=== PATIENT | male | born 1965 | race Caucasian/White ===

== ENCOUNTER 2017-01-14 10:15 | Emergency (ER) | payer OTHER ==
[~2017-01-14] VITALS: Ht 170.2 cm; Wt 82.2 kg
[2017-01-14 10:21] VITALS: TEMP 36.7; Ht 170.2 cm; Wt 82.2 kg
[2017-01-14] MEDS ORDERED: XYLOCAINE 1%/SOD BICARB 20 ML VIAL INFIL ONE (11:05)
[2017-01-14] MEDS ORDERED: DIPHTHERIA/TETANUS/PERTUSSIS 0.5 ML SYR/VIAL IM. ONE (11:30)
[2017-01-14 11:41] VITALS: BP 177/111; PULSE 74; O2SAT 97
--- NOTE | 2017-01-16 22:03 | EMERGENCY ROOM VISIT NOTE ---
ED Visit Note First contact with patient: 10:34 Chief Complaint: I cut my left ring finger. History of Present Illness: Mr. Macdonald is a 51-year-old white male who ambulates into the ED accompanied by female friend complaining of an anterior left ring finger laceration. Patient reports approximately 2 hours ago he was using a utility-like knife at work and cut the left ring finger. Prior to comment to the emergency department he did control bleeding but did not wash his wound. Currently associated with his laceration he reports a stinging sensation in the left ring finger. He rates his discomfort 5/10. The pain is nonradiating. Pain worsens with palpation. He has not identified any alleviating factors related to the pain. He has not taken any medications for his pain prior to arrival at the hospital. Associated with his pain he does report a numbing sensation through the distal phalanx the finger. Review of Systems: As noted above in history of present illness. Past Medical History: Patient denies. Current Medications: Patient denies. Allergies to Medications: Patient denies. Social History: Patient is currently employed; he feels safe in his home environment; he admits to tobacco and alcohol use. Tetanus Immunization Status: Patient reports elevate. Physical Examination: Vital Signs: Date Time Temp Pulse Resp B/P Pulse Ox O2 Delivery O2 Flow Rate FiO2 01/14/17 11:41 74 18 177/111 97 01/14/17 10:21 36.7 74 18 177/111 97 Room Air GENERAL: 51-year-old male in mild distress due to pain, nontoxic-appearing, afebrile and hemodynamically stable. NEUROLOGICAL: Awake, alert and oriented to person, place and time. Answering questions appropriately and following commands. SKIN: Warm, dry and pink. Left Ring Finger: Patient has a 2.8 cm full- thickness laceration extending just proximal to the DIP joint and extending distally to the middle distal phalanx. No active bleeding. LEFT RING FINGER: Soft tissue injury as noted above. No gross bony deformity. Full range of motion muscle strength in flexion and extension of the DIP, PIP and MTP joint against resistance. Throughout the finger the skin was warm and pink and capillary refill is brisk. He was able to distinguish light sensations through all dermatomes ED Course: Patient is assessed as noted above. Wound Repair: Complexity: Basic Verbal consent was obtained after the risks and benefits were explained. The skin was prepped with betadine and a sterile field set. Wound edges of the wound was anesthetized with 1.4 ml buffered 1% lidocaine. The wound was explored for foreign bodies and none found. Copious irrigation was performed using sterile saline. With direct pressure the bleeding subsided. Debridement was not performed. The wound edges were approximated using 5-0 Ethilon 6 with simple interrupted sutures. Hemostasis and excellent approximation was achieved. Antibacterial ointment, a sterile dressing applied and patient was placed in a finger splint since the laceration crossed joint line. No complications and the patient tolerated the procedure well. Patient was educated about tonight's findings and instructed on his treatment plan; he verbalizes understanding and agreement with this plan. Clinical Impression: Left ring finger laceration. Work related injury. Disposition: Patient discharged home in stable condition; prior to departure he was reassessed and subjectively reported he was pain-free. Plan: Comfort measures, wound care, and signs of infection were discussed with the patient. Patient was encouraged to follow-up with Workman's Compensation or return emergency department for signs of infection and/or suture removal in 10-12 days.
== END 2017-01-14 11:43 | disposition home or self-care (01) ==
LOC: C.EDB 10:16 → C.EDD 11:43
DX: S61.215A Laceration without foreign body of left ring finger without damage to nail, initial encounter (principal); W26.0XXA Contact with knife, initial encounter; Y99.0 Civilian activity done for income or pay; F17.200 Nicotine dependence, unspecified, uncomplicated; Z23 Encounter for immunization

== ENCOUNTER 2017-01-23 08:26 | Emergency (ER) | payer OTHER ==
[~2017-01-23] VITALS: Ht 170.2 cm; Wt 82.5 kg
[2017-01-23 08:31] VITALS: BP 158/95; PULSE 77; TEMP 36.6; O2SAT 97; Ht 170.2 cm; Wt 82.5 kg
--- NOTE | 2017-01-23 08:45 | EMERGENCY ROOM VISIT NOTE ---
ED Visit Note First contact with patient: 08:35 CHIEF COMPLAINT: Suture removal This patient returns to the ED today for removal of sutures that were placed 10 days ago. There has been no swelling, redness, or drainage from the wound. The patient feels like the laceration is healing well. REVIEW OF SYSTEMS: Head: No headache, injury or neck pain. Skin: No rash, new lesions, or masses. General: No fever or chills, fatigue, loss of appetite , or significant recent weight gain or loss. PMH: The patient is healthy; there is no significant medical or surgical history. SOCIAL HISTORY: Patient lives at home. PHYSICAL EXAM: Vital Signs: Reviewed Nurse's notes. There is a sutured wound on the LEFT 4th digit with no signs of infection. There is no erythema, swelling, or tenderness. EMERGENCY DEPARTMENT COURSE: The sutures were removed in alternating fashion. There was some mild wound dehiscence. I educated the patient on continued wound care. He will return in 5 days for removal of remaining sutures. He was educated on worrisome symptoms for return visit to the emergency department. Patient discharged home in good condition. DIAGNOSIS: Healing laceration and suture removal with wound dehiscence DISCHARGE INSTRUCTIONS AND TREATMENT: Please return in 5 days for removal of remaining sutures. Proper wound care is essential for adequate wound healing and infection prevention. You can shower and clean the wound with soap and water. Do not scour over the wound, pat dry with a towel. Do not submerse the wound (i.e. bathe or dish wash) until the sutures have been removed. If crust develops over the wound you can use a Q-tip to apply a 1:1 peroxide:water solution to clean the wound. Look for signs of infection of the wound including: increased pain, swelling, foul discharge, streaking, or increased temperature. If any of these are noticed you should return to the Emergency Department for further assessment and treatment. As with any laceration you may have received nerve damage to the surrounding tissues. This damage may or may not be permanent. You should keep the area covered with sunscreen for the first 6 months to 1 year when at risk for exposure to help minimize scarring. You can also use scar reducing creams or Vitamin E oil to help minimize scarring. For pain control, you can use the following [id number]-[id number] medicines (if >12 yo): - Regular strength (325mg/tab) Tylenol (acetaminophen) 2 tabs every 4-6 hours as needed. Do not exceed 12 tablets in a 24 hour period. Avoid taking more than 4 grams (4000 mg) of Tylenol per day. This includes any other sources of acetaminophen you may take on a regular basis. - Regular strength (200 mg/tab) Advil (ibuprofen) 1-2 tabs every 4-6 hours as needed. Do not exceed a dose of 3200 mg per day. Return to the emergency department if your symptoms worsen despite treatment course outlined above. Current/Historical Medications No Active Prescriptions or Reported Meds Allergies Coded Allergies: No Known Allergies (Unverified , 01/23/17) Vital Signs Date Time Temp Pulse Resp B/P Pulse Ox O2 Delivery O2 Flow Rate FiO2 01/23/17 08:31 36.6 77 16 158/95 97 Room Air Departure Information Impression Primary Impression: Encounter for removal of sutures Additional Impression: Wound dehiscence Dispostion Home / Self-Care Condition GOOD Prescriptions No Active Prescriptions or Reported Meds Referrals No Doctor, Assigned (PCP) Patient Instructions On License Of [facility] Additional Instructions Please return in 5 days for removal of remaining sutures. Proper wound care is essential for adequate wound healing and infection prevention. You can shower and clean the wound with soap and water. Do not scour over the wound, pat dry with a towel. Do not submerse the wound (i.e. bathe or dish wash) until the sutures have been removed. If crust develops over the wound you can use a Q-tip to apply a 1:1 peroxide:water solution to clean the wound. Look for signs of infection of the wound including: increased pain, swelling, foul discharge, streaking, or increased temperature. If any of these are noticed you should return to the Emergency Department for further assessment and treatment. As with any laceration you may have received nerve damage to the surrounding tissues. This damage may or may not be permanent. You should keep the area covered with sunscreen for the first 6 months to 1 year when at risk for exposure to help minimize scarring. You can also use scar reducing creams or Vitamin E oil to help minimize scarring. For pain control, you can use the following iojv-fen-rgbjdze medicines (if >12 yo): - Regular strength (325mg/tab) Tylenol (acetaminophen) 2 tabs every 4-6 hours as needed. Do not exceed 12 tablets in a 24 hour period. Avoid taking more than 4 grams (4000 mg) of Tylenol per day. This includes any other sources of acetaminophen you may take on a regular basis. - Regular strength (200 mg/tab) Advil (ibuprofen) 1-2 tabs every 4-6 hours as needed. Do not exceed a dose of 3200 mg per day. Return to the emergency department if your symptoms worsen despite treatment course outlined above. Problem Qualifiers
== END 2017-01-23 08:49 | disposition home or self-care (01) ==
LOC: C.EDB 08:28 → C.EDA 08:49
DX: S61.215A Laceration without foreign body of left ring finger without damage to nail, initial encounter (principal); W26.0XXA Contact with knife, initial encounter

== ENCOUNTER 2017-01-28 09:49 | Emergency (ER) | payer OTHER ==
[~2017-01-28] VITALS: Ht 170.2 cm; Wt 82.9 kg
[2017-01-28 09:57] VITALS: BP 160/100; PULSE 75; TEMP 36.7; O2SAT 97; Ht 170.2 cm; Wt 82.9 kg
--- NOTE | 2017-01-28 10:29 | EMERGENCY ROOM VISIT NOTE ---
History First contact with patient: 10:00 Chief Complaint: SUTURE/STAPLE REMOVAL Stated Complaint: REMOVAL OF STITCHES Nursing Triage Summary: Sutures to left ring finger placed 15 days ago Had 2 removed but "they told me to leave the rest in until today" History of Present Illness The patient is a 51 year old male who presents to the Emergency Room for suture removal from a left fourth finger laceration that was repaired in our facility 15 days ago. The patient was here days ago with only partial suture removal as the wound looked too soft. The patient denies any further wound complications. He does complain of some mild numbness of the digital pad of the finger. Review of Systems Noncontributory Past Medical/Surgical History Well-documented on initial visit Family History Unremarkable Social History Smoking Status: Never Smoker Alcohol Use: occasionally Marital Status: Occupation Status: employed Current/Historical Medications No Active Prescriptions or Reported Meds Allergies Coded Allergies: No Known Allergies (Unverified , 01/23/17) Physical Exam Vital Signs Date Time Temp Pulse Resp B/P Pulse Ox O2 Delivery O2 Flow Rate FiO2 01/28/17 09:57 36.7 75 18 160/100 97 Room Air Pain Rating (0-10): 0 Physical Exam MUSCULOSKELETAL: Examination of the left ring finger shows a well-healed laceration on the volar aspect of the middle phalanx. No erythema, edema, drainage or diastases. All sutures were removed without any complications. INTEGUMENTARY: No rash or other significant dermatologic conditions noted. NEUROLOGIC: Left fourth finger digital pad is grossly sensory intact. Medical Decision & Procedures ED Course The patient was instructed to follow-up with his PCP as needed for any further wound management. He was advised that the numbness/tingling will take some time to resolve. Medical Decision Impression Primary Impression: Encounter for removal of sutures Additional Impression: Laceration of left ring finger Departure Information Prescriptions No Active Prescriptions or Reported Meds Referrals No Doctor, Assigned (PCP) Patient Instructions My [facility] Problem Qualifiers
== END 2017-01-28 10:15 | disposition home or self-care (01) ==
LOC: C.EDB 09:51
DX: S61.215A Laceration without foreign body of left ring finger without damage to nail, initial encounter (principal); W26.0XXA Contact with knife, initial encounter

== ENCOUNTER 2019-01-29 22:14 | Inpatient (IN) ==
[2019-01-29] MEDS ORDERED: ONDANSETRON INJ 2 MG/ML 2 ML VIAL IV STA (22:19)
[2019-01-29] MEDS ORDERED: TICAGRELOR 90 MG TAB PO ONE ×2 (22:19→22:21)
[2019-01-29] MEDS ORDERED: HEPARIN IV BOLUS 5,000 UNITS in SYRINGE 0 ML IV ONE (22:19)
[2019-01-29] MEDS ORDERED: fentaNYL citrate 100 MCG/2 ML VIAL IV STA (22:19)
[2019-01-29] MEDS ORDERED: HEPARIN SOD 5,000 UNIT/0.5 ML VIAL ONE (22:21)
[2019-01-29] MEDS ORDERED: ONDANSETRON INJ 2 MG/ML 2 ML VIAL ONE (22:22)
[2019-01-29] MEDS ORDERED: fentaNYL citrate 100 MCG/2 ML VIAL ONE (22:23)
--- NOTE | 2019-01-29 22:34 | Cardiology Consultation ---
Date of Consultation January 29, 2019 Assessment & Plan (1) ST elevation myocardial infarction (STEMI) of anterior wall: Patient here with acute onset chest pain EKG showing anterior ST elevations. Plan to proceed emergently to cardiac catheterization lab. Discussed procedure with patient including risks, benefits, alternatives of cardiac catheterization and willing to proceed. We will give 5000 units of heparin, under 80 mg of ticagrelor in the ED. Further recommend patient's pending findings of angiography. History of Present Illness History of Present Illness Mr. Macdonald is a 53-year-old man with no prior cardiac history presenting today with acute chest pain. Interventional cardiology consult for apparent anterior ST elevation VT. Patient was in his usual state of health tonight when all of a sudden while getting out of the shower developed crushing substernal chest pain. Pain associated with vomiting, diaphoresis and persisted for approximately an hour before reaching [facility] ED. Upon arrival hypertensive to the 170s, active chest pain 7/10. Given sublingual nitroglycerin in route, aspirin. Presenting EKG showed sinus rhythm with greater than [address] elevations across precordial leads. Family history: Father with premature coronary disease in early 60s and multiple prior stents Social history: Uses smokeless tobacco. Works in maintenance for an apartment building Medications: None Allergies: none Allergies Allergy/AdvReac Type Severity Reaction Status Date / Time No Known Allergies Allergy Unverified 01/23/17 08:37 Patient History Social History Feels Safe at Home: Yes Smoking Status: Never smoker Review of Systems Not obtained in the setting of emergent situation Physical Exam Vital Signs (Past 24 Hours): Last Vital Signs Temp 36.9 C 01/29/19 22:20 Pulse 93 H 01/29/19 22:20 Resp 16 01/29/19 22:20 BP 170/114 H 01/29/19 22:20 Pulse Ox 98 01/29/19 22:20 Physical Exam: General: Uncomfortable, anxious Eyes: Sclerae anicteric, extraocular movements intact HENT: Oropharynx clear mucous membranes moist Lungs: Clear to auscultation bilaterally, no rhonchi or wheezes Cardiac: Regular rate and rhythm, no murmurs, rubs or gallops. Vascular: 2+ radial Abdomen: Soft, nontender, nondistended, positive bowel sounds. Extremities: Well perfused, no peripheral edema Skin: No rashes or lesions. Neuro: Nonfocal Psych: Alert orient x3, normal affect and mood
--- NOTE | 2019-01-29 22:42 | XRay Report ---
SINGLE VIEW CHEST CLINICAL HISTORY: Atypical chest pain. FINDINGS: An AP, portable, upright chest radiograph is obtained. No prior studies are available for c omparison at the time of dictation. The examination is degraded by portable technique and patient rot ation. The cardiomediastinal silhouette is unremarkable. Nonspecific interstitial thickening is like ly chronic. No airspace consolidation or large pleural effusion is identified. No pneumothorax is see n. The skeletal structures are osteopenic. The bony thorax is grossly intact. IMPRESSION: No acute cardiopulmonary abnormality. Electronically signed by: Zeke Bello M.D. 01/29/2019 10:41 PM
[2019-01-29 22:50] LABS: Basophils # (auto) 0.02 K/uL (0-0.2); Basophils % (auto) 0.2 %; Eosinophils # (auto) 0.25 K/uL (0-0.5); Eosinophils % (auto) 2.6 %; Hematocrit (blood only) 48.6 % (42-52); Hemoglobin 17.4 g/dL (14.0-18.0); Immature Granulocytes # (auto) 0.02 K/uL (0.00-0.02); Immature Granulocytes % (auto) 0.2 %; Lymphocytes # (auto) 3.55 K/uL (1.2-3.4); Lymphocytes % (auto) 36.5 %; Mean Corpuscular Hgb Conc 35.8 g/dL (32-36); Mean Corpuscular Volume 88.5 fL (80-100); Monocytes # (auto) 0.74 K/uL (0.11-0.59); Monocytes % (auto) 7.6 %; Neutrophils # (auto) 5.14 K/uL (1.4-6.5); Neutrophils % (auto) 52.9 %; Platelet Count 230 K/uL (130-400); RDW Coefficient of Variation 12.8 % (11.5-14.5); RDW Standard Deviation 41.3 fL (36.4-46.3); Red Blood Count 5.49 M/uL (4.7-6.1); White Blood Count 9.72 K/uL (4.8-10.8)
[2019-01-29 22:56] LABS: Albumin Level 3.9 gm/dl (3.4-5.0); BUN Creatinine Ratio 11.8 (10-20); Calcium 9.2 mg/dl (8.5-10.1); Est GFR (Non-African American) 78.5; Potassium 3.8 mmol/L (3.5-5.1)
[2019-01-29] MEDS ORDERED: METOPROLOL TARTRATE 1 MG/ML VIAL IV ONE (22:59)
[2019-01-29 23:01] LABS: Albumin Globulin Ratio 0.9 (0.9-2); Bilirubin,Total 0.5 mg/dl (0.2-1); Globulin 4.3 gm/dl (2.5-4.0); Total Protein 8.2 gm/dl (6.4-8.2); Troponin I 0.025 ng/ml (0-0.045)
[2019-01-29] MEDS ORDERED: MIDAZOLAM HCL 1 MG/ML 2ML VIAL ONE (23:22)
[2019-01-29] MEDS ORDERED: HEPARIN (PORCINE) 1000 UNIT/ML 10 ML (CATH LAB USE ONLY) ONE (23:23)
[2019-01-29] MEDS ORDERED: NITROGLYCERIN/D5W 100MCG/ML 20ML SYR ONE (23:23)
[2019-01-29] MEDS ORDERED: NiCARDipine HCL INJ 2.5 MG/ML 10 ML AMP ONE (23:23)
--- NOTE | 2019-01-29 23:39 | Pre Anesthesia Assessment ---
Date of Service January 29, 2019 Pre Sedation Assessment Vital Signs Temp Pulse Resp BP Pulse Ox 01/29/19 23:31 65 162/113 H 01/29/19 22:35 65 18 162/113 H 98 01/29/19 22:20 36.9 C 93 H 16 170/114 H 99 01/29/19 22:15 66 96 Cardiovascular RRR, no murmur, no edema Respiratory normal respiratory effort, lungs clear to auscultation Pre-Sedation Airway Assessment Smoking Status: Never smoker Hx Sleep Apnea: No Hx Difficult Intubation: No Short, Thick Neck: No Thyromental Distance: > or= 3.5 Finger Breadths Oral Cavity: + WNL Mallampati Class: III Procedure Planning Contraindications for Sedation: none Current Medications Reviewed: Yes Notes The planned sedation has been discussed with the patient. Informed Consent was obtained. I have identified the patient, determined the appropriateness of sedation and have assessed the patient immediately prior to the procedure. All medicine(s) and interventions are by my order.
--- NOTE | 2019-01-29 23:40 | Post Anesthesia Assessment ---
Date of Service January 29, 2019 Post Sedation Assessment Vital Signs Temp Pulse Resp BP Pulse Ox 01/29/19 23:31 65 162/113 H 01/29/19 22:35 65 18 162/113 H 98 01/29/19 22:20 36.9 C 93 H 16 170/114 H 99 01/29/19 22:15 66 96 Recovery Score Activity: Moves 4 extremities Respiration: Deep Breath/Cough Circulation: +/-20% PreAnes Value Consciousness: Fully Awake Oxygen Saturation: O2 needed for >90% Discharge Sedation Level of Care: Fast Track Phase II Post Sedation Plan On clinical assessment, the patient appears to have tolerated the sedation without complications. Patient is recovering as anticipated. Patient will continue to be monitored by nursing and may be discharged when sedation discharge criteria are met per below protocol. Upon Completions of procedure and additional 15 minutes continue every 5 minute vital signs and the P.A.R. score; then discharge to a Phase I or Fast Track to Phase II per the following guidelines: * Discharge Patient to appropriate Phase II area if PAR is 8 or greater or return to pre- procedure baseline. The post - procedure orders will be as directed. * If PAR score is less than 8 or not return to pre-procedure baseline then patient will follow Phase I monitoring till PAR is reached for Phase II. The Phase I may be done in procedure room or may call to secure a Phase I area. * If naloxone or flumazenil are used for reversal, hold in Phase I for continued monitoring from when last reversal dose was given for a minimum of 60 minutes or longer pending the nurse and/or physician discretion of patient condition before discharge to Phase II. Please call the Sedation Physician to re-evaluate and complete post-note for discharge to Phase II area. Do NOT discharge from procedure sedation or Phase 1 until post- sedation evaluation note is complete by procedure /sedation MD Sedation Discharge Instructions to be given to the patient at discharge to home.
[2019-01-29] MEDS ORDERED: ACETAMINOPHEN 325 MG TAB PO PRN (23:41)
[2019-01-29] MEDS ORDERED: ONDANSETRON INJ 2 MG/ML 2 ML VIAL IV PRN (23:41)
[2019-01-29] MEDS ORDERED: ICU PROTOCOL FOR HYPERGLYCEMIA PRN (23:45)
[2019-01-29] MEDS: SODIUM CHLORIDE 0.9% 1000ML 1,000 ML IV SCH (23:50)
--- NOTE | 2019-01-29 23:50 | Cardiac Catheterization ---
Cardiac Cath Procedure Full Procedure Date January 29, 2019 Pre-Procedure Diagnosis Pre-Procedure Diagnosis: STEMI AUC Score AUC Score: 9 Post-Procedure Diagnosis Post-Procedure Diagnosis: Severe CAD, Successful PCI and Normal Intracardiac Pressures Procedure(s) Performed Procedure(s) Performed: Coronary Angiography, Left Heart Cath and Drug Eluting Stent Graphic Engineer Dami Hall MD Quality Review Specialist(s) Kerry Estimated Blood Loss Estimated Blood Loss: 15 Medication(s) Medication(s): Fentanyl, Heparin, Lidocaine 1%, Metoprolol, Nicardipine, Nitroglycerin and Versed Medication(s): Ticagrelor Summary of Findings Indication: STEMI/Heart Alert Access: 6 Fr right radial artery Catheters: EBU 3.5 guide, diagnostic JR4, pigtail Findings: LM -angiographically normal LAD -moderate caliber vessel, proximal luminal irregularities, 100% acute mid occlusion after takeoff of moderate caliber second diagonal Circumflex -moderate caliber vessel, 20% mid segment disease. 30-40% ostial OM 2. 20-30% proximal OM 3 RCA -dominant, large caliber, 20% mid segment disease, distal luminal irregularities LVEDP -12 -- PCI -- Antithrombotic therapy: Heparin, ticagrelor Procedure: Left main cannulated with EBU 3.5 guide BMW wire passed across lesion into distal vessel Mid LAD lesion predilated with 2.5 compliant balloon Pro-water wire placed into second diagonal Dilated lesion stented with 2.75 x 33 mm Xience Justina drug-eluting stent Stent post-dilated with 3.0 noncompliant balloon IC vasodilators administered for spasm Post procedure WOLF 3 flow, stent well expanded with minimal residual stenosis and no apparent cardiac complications. Arterial Closure: TR band Summary: 1. Anterior STEMI/Occluded mid LAD 2. Mild nonobstructive non-culprit coronary artery disease 3. Normal intracardiac filling pressure 4. Successful PCI of mid LAD with single drug-eluting stent (2.75 x 33 mm Xience Justina; postdilated with 3.0 NC). Recommendations: Admit to ICU for continued monitoring Loaded with ticagrelor 180 mg Continue dual-antiplatelet therapy for at least 1 year. Trend troponins until peak, Check Echo Uptitrate beta-celia/MAGUE as BP allows High-dose statin Consult cardiac Rehab Hemodynamics Rest Ao:: 167/89/126 Final Ao: 144/82/108 LV: 134/12 Recommendations Recommendations: PCI without planned CABG Specimens Specimens: None Radiation Exposure (mGy) 2082 Contrast (mls) 95 Fluids (cc crystalloids) Fluids (cc crystalloids): 68 Drains Drains: None Anesthesia Moderate Procedural Complication(s) None Disposition ICU ACC Data: [employer] Cardiac Status Clinical evaluation leading to the procedure CAD Presenation: STEMI Anginal Classification: CCS IV Heart Failure: No Cardiogenic Shock within 24 Hours: No Cardiac Arrest within 24 Hours: No Imaging Studies Past 6 Months: No Stress Studies Past 6 Months: No Diagnostic Physicians Name: Dami Hall MD Status: Emergency Closure Device Percutaneous Entry Location: Radial Closure Device: Radial Band Recommendations: PCI without planned CABG PCI Indication: Immediate PCI for STEMI First Noted: First EKG Lesion Segment Name: Mid LAD Culprit Artery: Yes Stenosis Prior to Rx (%): 100 Chronic Total Occlusion: No IVUS: No FFR: No Pre-Procedure WOLF Flow: 0 Previously Treated Lesion: No Lesion Complexity: Non-High/Non-C Lesion Length (mm): 25 Thrombus Present: Yes Bifurcation Lesion: No Guidewire Across Lesion: Stenosis Post-Procedure (%): 0 Post-Procedure WOLF Flow: 3 Devices(s) Deployed: Yes Yes Intraprocedure Events Significant Disection: No Perforation: No
--- NOTE | 2019-01-30 00:21 | History & Physical Report ---
Date of Service January 30, 2019 Assessment & Plan (1) ST elevation myocardial infarction (STEMI) of anterior wall: Patient with anterior STEMI s/p cardiac catheterization revealing 100% occlusion of LAD s/p KIERRA x 1. Presently HD stable, CP free, no complaints -Admit to MICU -Trend cardiac enzymes -Neurovascular checks per protocol -2D echo in the AM -Continue ASA, Atorvastatin, Lisinopril, Metoprolol -Continue Ticragrelor -Nitro PRN CP (2) Hyperglycemia: Blood sugar elevated at 211. Patient with no known history of DM, however, he has not had routine medical care for some time -Check HgA1C -ICU insulin protocol F/E/N- NSS at 100mL/hr, monitor electrolytes and optimize as needed, heart healthy diet as tolerated Ppx - ASA, Ticagrelor. Activity as tolerated Code -Full Dispo - MICU History of Present Illness Chief Complaint: Anterior STEMI Primary Care Provider: NO PCP Mr. Macdonald is a 53yo C male with no significant past medical history presenting with nausea/vomiting and chest pain. EKG with anterior STEMI. Patient arrived to [facility] ER as a Code Heart and was taken urgently to the manager lab with Dr. Hall. Cardiac cath result: LM -angiographically normal LAD -moderate caliber vessel, proximal luminal irregularities, 100% acute mid occlusion after takeoff of moderate caliber second diagonal Circumflex -moderate caliber vessel, 20% mid segment disease. 30-40% ostial OM 2. 20-30% proximal OM 3 RCA -dominant, large caliber, 20% mid segment disease, distal luminal irregula rities LVEDP -12 Patient had successful PCI of mid LAD with single drug-eluting stent (2.75 x 33 mm Xience Justina; postdilated with 3.0 NC). Presently feeling well. Denies CP, palpitations, dizziness, lightheadedness. No additional complaints at this time. Allergies Allergy/AdvReac Type Severity Reaction Status Date / Time No Known Allergies Allergy Unverified 01/23/17 08:37 Past Med/Surg History Medical History CAD (coronary artery disease) Anterior STEMI 01/29/19 s/p cath with KIERRA to LAD Surgical History S/P cardiac cath Family History Other Coronary heart disease Diabetes Hypertension Social History Preferred Language: Greenlandic Communication Ability: Effective Quality Engineer Required: No Beliefs That Will Affect Care: None Current Living Situation: Alone Other Information That Helps Us Care for You: No Feels Safe at Home: Yes Safety Concerns: Feels Safe At This Time Smoking Status: Never smoker Hx Alcohol Use: Yes Hx Substance Use: No Review of Systems All systems reviewed & are unremarkable except as noted in HPI & below Physical Exam Vital Signs (Past 24 Hours): Last Vital Signs Temp 36.7 C 01/29/19 23:44 Pulse 72 01/29/19 23:44 Resp 18 01/29/19 23:44 BP 132/81 01/29/19 23:44 Pulse Ox 97 01/29/19 23:44 Physical Exam: General: patient resting comfortably, NAD, non-toxic in appearance, AA&O x 4 Skin: warm, dry, intact, no rashes or lesions HEENT: NC/AT, PERRL, EOMI, anicteric sclera, conjunctiva without injection, external ear normal to inspection and nontender, nares patent, moist mucus membranes, dentition intact, no oropharyngeal lesions, neck supple, trachea midline, no LAD, no thyromegaly, no JVD Heart: +S1/S2, regular, no m/r/g Lungs: equal air entry bilaterally, no rales/rhonchi/wheezes Abd: +BS, soft, NT/ND, no masses/organomegaly/ascites Ext: warm, 2+ pulses in UE/LE bilaterally, no clubbing/cyanosis or edema, hemostasis band on right wrist, no bleeding Neuro: nonfocal, patient AA&O x 4, speech intact, no facial droop, moving all extremities on command with equal strength 5/5 Results & Data Laboratory Results Lab Results 01/29/19 01/29/19 01/29/19 Range/Units 21:49 22:50 Unknown WBC 9.72 (4.8-10.8) K/uL RBC 5.49 (4.7-6.1) M/uL Hgb 17.4 (14.0-18.0) g/dL Hct 48.6 (42-52) % MCV 88.5 (80-100) fL MCH 31.7 (25-34) pg MCHC 35.8 (32-36) g/dL RDW Std Deviation 41.3 (36.4-46.3) fL RDW Coeff of Hazel 12.8 (11.5-14.5) % Plt Count 230 (130-400) K/uL MPV 11.0 H (7.4-10.4) fL Immature Gran % (Auto) 0.2 % Neut % (Auto) 52.9 % Lymph % (Auto) 36.5 % [place] % (Auto) 7.6 % Eos % (Auto) 2.6 % Baso % (Auto) 0.2 % Immature Gran # (Auto) 0.02 (0.00-0.02) K/uL Neut # (Auto) 5.14 (1.4-6.5) K/uL Lymph # (Auto) 3.55 H (1.2-3.4) K/uL [place] # (Auto) 0.74 H (0.11-0.59) K/uL Eos # (Auto) 0.25 (0-0.5) K/uL Baso # (Auto) 0.02 (0-0.2) K/uL Activ Coag Time Kaolin 257 H (94-140) SECONDS POC D-Dimer 432 (0-450) ng/mlFEU Sodium (136-145) mmol/L Potassium (3.5-5.1) mmol/L Chloride (98-107) mmol/L Carbon Dioxide (21-32) mmol/L Anion Gap (3-11) BUN (7-18) mg/dl Creatinine (0.6-1.4) mg/dl Est Cr Clr Drug Dosing ml/min Est GFR ( Amer) Est GFR (Non-Af Amer) BUN/Creatinine Ratio (10-20) Glucose (70-99) mg/dl Calcium (8.5-10.1) mg/dl Total Bilirubin (0.2-1) mg/dl AST (15-37) U/L ALT (12-78) U/L Alkaline Phosphatase (45-117) U/L POC Troponin I < 0.03 (0-0.045) ng/ml Troponin I (0-0.045) ng/ml Total Protein (6.4-8.2) gm/dl Albumin (3.4-5.0) gm/dl Globulin (2.5-4.0) gm/dl Albumin/Globulin Ratio (0.9-2) Lipase (73-393) U/L 01/29/19 Range/Units Unknown WBC (4.8-10.8) K/uL RBC (4.7-6.1) M/uL Hgb (14.0-18.0) g/dL Hct (42-52) % MCV (80-100) fL MCH (25-34) pg MCHC (32-36) g/dL RDW Std Deviation (36.4-46.3) fL RDW Coeff of Hazel (11.5-14.5) % Plt Count (130-400) K/uL MPV (7.4-10.4) fL Immature Gran % (Auto) % Neut % (Auto) % Lymph % (Auto) % [place] % (Auto) % Eos % (Auto) % Baso % (Auto) % Immature Gran # (Auto) (0.00-0.02) K/uL Neut # (Auto) (1.4-6.5) K/uL Lymph # (Auto) (1.2-3.4) K/uL [place] # (Auto) (0.11-0.59) K/uL Eos # (Auto) (0-0.5) K/uL Baso # (Auto) (0-0.2) K/uL Activ Coag Time Kaolin (94-140) SECONDS POC D-Dimer (0-450) ng/mlFEU Sodium 140 (136-145) mmol/L Potassium 3.8 (3.5-5.1) mmol/L Chloride 103 (98-107) mmol/L Carbon Dioxide 32 (21-32) mmol/L Anion Gap 5.0 (3-11) BUN 13 (7-18) mg/dl Creatinine 1.08 (0.6-1.4) mg/dl Est Cr Clr Drug Dosing 82.0 ml/min Est GFR ( Amer) 91.0 Est GFR (Non-Af Amer) 78.5 BUN/Creatinine Ratio 11.8 (10-20) Glucose 211 H (70-99) mg/dl Calcium 9.2 (8.5-10.1) mg/dl Total Bilirubin 0.5 (0.2-1) mg/dl AST 23 (15-37) U/L ALT 39 (12-78) U/L Alkaline Phosphatase 109 (45-117) U/L POC Troponin I (0-0.045) ng/ml Troponin I 0.025 (0-0.045) ng/ml Total Protein 8.2 (6.4-8.2) gm/dl Albumin 3.9 (3.4-5.0) gm/dl Globulin 4.3 H (2.5-4.0) gm/dl Albumin/Globulin Ratio 0.9 (0.9-2) Lipase 217 (73-393) U/L Diagnostic Findings SINGLE VIEW CHEST CLINICAL HISTORY: Atypical chest pain. FINDINGS: An AP, portable, upright chest radiograph is obtained. No prior studies are available for comparison at the time of dictation. The examination is degraded by portable technique and patient rotation. The cardiomediastinal silhouette is unremarkable. Nonspecific interstitial thickening is likely chronic. No airspace consolidation or large pleural effusion is identified. No pneumothorax is seen. The skeletal structures are osteopenic. The bony thorax is grossly intact. IMPRESSION: No acute cardiopulmonary abnormality. Electronically signed by: Zeke Bello M.D. 01/29/2019 10:41 PM Dictated: 01/29/19 224 Transcribed: 01/29/19 224 ECG Additional Comments: Initial EKG with ST elevations in anterior leads Repeat EKG pending Code Status & VTE Plan Code Status Full per discussion with patient VTE Prophylaxis Plan VTE Prophylaxis will be ordered: Yes Critical Care Time 25 minutes Critical Care Time: Yes
--- NOTE | 2019-01-30 03:00 | Emergency Department Note ---
Entered by Reji Bergeron acting as a scribe for Krunal Barnett MD ED Provider Note CHIEF COMPLAINT: Chest pain HISTORY OF PRESENT ILLNESS: The patient is a 53 year old male that presents to the ED via ambulance with complaints of constant chest pain that started about an hour prior to arrival. He rates the pain as an 8/10 and it does not radiate anywhere. He also vomited one time. En route he received 3 Nitroglycerin and 1 Aspirin, which did not help relieve his symptoms. He has no past medical history but his father has coronary artery disease and had coronary stents placed. The patient is a nonsmoker. Prehospital ECG was concerning for acute anterolateral myocardial infarction. Command was contacted. I discussed the case with the paramedics. A heart alert was initiated. Pt denies LOC, headache, fevers, diaphoresis, visual changes, neck pain, breathing difficulties, nausea, vomiting, abdominal pain, back pain, melena, hematochezia, urinary symptoms, numbness, weakness, lymphadenopathy, rash, or other complaints. REVIEW OF SYSTEMS: See HPI for pertinent positives and negatives. A total of ten systems were reviewed and were otherwise negative. PMHx/PSHx: No past medical history SOCIAL HISTORY: Patient lives at home. PHYSICAL EXAM: GENERAL: Awake, alert, uncomfortable-appearing, in moderate distress HENT: Normocephalic, atraumatic. Oropharynx unremarkable. EYES: Normal conjunctiva. Sclera non-icteric. NECK: Inspection normal. Non-tender. Supple. No nuchal rigidity. FROM. No masses. RESPIRATORY: Clear to auscultation. No wheezes. No rales. Normal respiratory effort. CARDIAC: Normal rate. Normal rhythm. No murmurs. No rubs. Extremities warm and well perfused. Pulses equal. No JVD. GI: Soft, non-distended. No tenderness to palpation. No rebound or guarding. No masses. RECTAL: Deferred. MUSCULOSKELETAL: Atraumatic. Chest examination reveals no tenderness. The back is symmetrical on inspection without obvious abnormality. There is no CVA tenderness to palpation. No joint edema. LOWER EXTREMITIES: Calves are equal size bilaterally and non-tender. No edema. No discoloration. NEURO: Normal sensorium. No sensory or motor deficits noted. SKIN: No rash or jaundice noted. EMERGENCY DEPARTMENT COURSE: 2213: Past medical records reviewed. Pre-Hospital EKGs from the times of 21:55, 22:02, and 22:05, were assessed. They all show anterior and some inferior ST elevation with PVCs present. His heart rate was 92, 96, 98, respectively. The patient was evaluated in room B01, and a complete history and physical examination were performed. 2220: Dr. Rafael Justin Cardiology recommended 5000 IV Heparin and 180mg Brilinta while his team comes in to take him to the lab aide. 2227: The patient states his pain has improved to a 5/10 after the pain medications. 2230: The patient was taken to the catheterization lab and accepted for further treatment and evaluation by Dr. Rafael Justin Cardiology. MEDICAL DECISION MAKING: Nursing notes reviewed and agree them. Additional history obtained from paramedics. The patient's history was concerning for chest pain. Differential diagnosis: Etiologies such as cardiac ischemia, aortic dissection, pulmonary embolism, esophageal rupture, pneumonia, pneumothorax, musculoskeletal, infections, gastrointestinal, as well as others were entertained. Physical examination: Patient was in acute distress. Physical exam is as above. ER treatment provided: Heparin Brilinta Zofran IVP Fentanyl On reassessment the patient felt better. Diagnostic interpretation: The electrocardiogram was significant for an acute myocardial infarction. The labs revealed normal chemistries and cardiac enzymes by i-STAT and [id number]. The following imaging studies were performed and reviewed by me: Chest x-ray as above. No evidence of widened mediastinum. The patient is having an acute myocardial infarction. The heart alert was initiated prehospital. The patient was evaluated in the ER by Dr. Hall of cardiology. He agreed with the assessment. He requested Brilinta and heparin be given. This was done. The patient's pain was treated with IV fentanyl as he had no relief with nitroglycerin. Critical Care: I have personally spent greater than 30 minutes of critical care time in the direct management of this patient. This includes bedside care, interpretation of diagnostic studies, and testing, discussion with consultants, patient, and significant other, documentation, and other required patient management activities. This 30 minutes is in excess of all separately billable procedures. IMPRESSION: Acute Myocardial Infarction PLAN: Admitted The scribe's documentation has been prepared under my direction and personally reviewed by me in its entirety. I confirm that the note above accurately reflects all work, treatment, procedures, and medical decision making performed by me. Impression & Plan Acute DC Past Med/Surg History Medical History CAD (coronary artery disease) Anterior STEMI 01/29/19 s/p cath with KIERRA to LAD Surgical History S/P cardiac cath Family History Other Coronary heart disease Diabetes Hypertension Social History Preferred Language: Pashto Communication Ability: Effective Chiller Hand Required: No Beliefs That Will Affect Care: None Current Living Situation: Alone Other Information That Helps Us Care for You: No Feels Safe at Home: Yes Safety Concerns: Feels Safe At This Time Smoking Status: Never smoker Hx Alcohol Use: Yes Hx Substance Use: No Results & Data Vital Signs Vital Signs - 24 hr 01/29/19 22:15 01/29/19 22:20 01/29/19 22:35 Temperature 36.9 C Temperature Source Oral Sepsis Recent Fever Within 48 Hours No Sepsis New/Unexplained Change in Mental Status No Sepsis Action Taken by Nursing No Action Required Pulse Rate 66 93 H 65 Pulse Rate [Left Apical] Pulse Rate from SpO2 Sensor Pulse Rhythm Regular Regular Pulse Rhythm [Left Apical] Pulse Strength Normal Pulse Strength [Left Apical] Respiratory Rate 16 18 Respiratory Effort / Characteristics Non-Labored Spontaneous Respiratory Depth Normal Respiratory Pattern Blood Pressure 170/114 H 162/113 H Blood Pressure [Left Arm] Blood Pressure Mean 132 Blood Pressure Mean [Left Arm] Blood Pressure Position Lying Blood Pressure Position [Left Arm] Pulse Oximetry 96 99 98 Oxygen Delivery Method Room Air Nasal Cannula Nasal Cannula Oxygen Flow Rate 2 2 01/29/19 23:30 01/29/19 23:31 01/29/19 23:41 Temperature 36.8 C Temperature Source Sepsis Recent Fever Within 48 Hours Sepsis New/Unexplained Change in Mental Status Sepsis Action Taken by Nursing Pulse Rate 65 73 Pulse Rate [Left Apical] 80 Pulse Rate from SpO2 Sensor Pulse Rhythm Pulse Rhythm [Left Apical] Regular Pulse Strength Pulse Strength [Left Apical] Normal Respiratory Rate 18 19 Respiratory Effort / Characteristics Non-Labored Respiratory Depth Normal Respiratory Pattern Regular Blood Pressure 162/113 H 133/87 Blood Pressure [Left Arm] 138/79 Blood Pressure Mean 102 Blood Pressure Mean [Left Arm] 98 Blood Pressure Position Blood Pressure Position [Left Arm] Lying Pulse Oximetry 96 Oxygen Delivery Method Room Air Oxygen Flow Rate 01/29/19 23:42 01/29/19 23:43 01/29/19 23:44 Temperature 36.7 C Temperature Source Oral Sepsis Recent Fever Within 48 Hours Sepsis New/Unexplained Change in Mental Status Sepsis Action Taken by Nursing Pulse Rate 75 78 Pulse Rate [Left Apical] 72 Pulse Rate from SpO2 Sensor 74 78 Pulse Rhythm Pulse Rhythm [Left Apical] Pulse Strength Pulse Strength [Left Apical] Respiratory Rate 16 20 18 Respiratory Effort / Characteristics Non-Labored Respiratory Depth Normal Respiratory Pattern Regular Blood Pressure 132/81 Blood Pressure [Left Arm] 132/81 Blood Pressure Mean 98 Blood Pressure Mean [Left Arm] 98 Blood Pressure Position Blood Pressure Position [Left Arm] Pulse Oximetry 95 97 97 Oxygen Delivery Method Room Air Oxygen Flow Rate 01/29/19 23:45 01/30/19 00:00 01/30/19 00:01 Temperature Temperature Source Sepsis Recent Fever Within 48 Hours Sepsis New/Unexplained Change in Mental Status Sepsis Action Taken by Nursing Pulse Rate 85 82 82 Pulse Rate [Left Apical] Pulse Rate from SpO2 Sensor 81 77 85 Pulse Rhythm Pulse Rhythm [Left Apical] Pulse Strength Pulse Strength [Left Apical] Respiratory Rate 23 16 23 Respiratory Effort / Characteristics Respiratory Depth Respiratory Pattern Blood Pressure 128/93 Blood Pressure [Left Arm] Blood Pressure Mean 104 Blood Pressure Mean [Left Arm] Blood Pressure Position Blood Pressure Position [Left Arm] Pulse Oximetry 96 96 97 Oxygen Delivery Method Oxygen Flow Rate 01/30/19 00:15 01/30/19 00:30 01/30/19 00:42 Temperature Temperature Source Sepsis Recent Fever Within 48 Hours Sepsis New/Unexplained Change in Mental Status Sepsis Action Taken by Nursing Pulse Rate 76 77 78 Pulse Rate [Left Apical] Pulse Rate from SpO2 Sensor 76 78 78 Pulse Rhythm Pulse Rhythm [Left Apical] Pulse Strength Pulse Strength [Left Apical] Respiratory Rate 25 H 22 15 Respiratory Effort / Characteristics Respiratory Depth Respiratory Pattern Blood Pressure 131/84 Blood Pressure [Left Arm] Blood Pressure Mean 99 Blood Pressure Mean [Left Arm] Blood Pressure Position Blood Pressure Position [Left Arm] Pulse Oximetry 97 97 97 Oxygen Delivery Method Oxygen Flow Rate 01/30/19 00:45 01/30/19 00:46 01/30/19 01:00 Temperature Temperature Source Sepsis Recent Fever Within 48 Hours Sepsis New/Unexplained Change in Mental Status Sepsis Action Taken by Nursing Pulse Rate 71 74 71 Pulse Rate [Left Apical] Pulse Rate from SpO2 Sensor 72 73 71 Pulse Rhythm Pulse Rhythm [Left Apical] Pulse Strength Pulse Strength [Left Apical] Respiratory Rate 17 23 10 L Respiratory Effort / Characteristics Respiratory Depth Respiratory Pattern Blood Pressure 121/88 136/89 Blood Pressure [Left Arm] Blood Pressure Mean 99 104 Blood Pressure Mean [Left Arm] Blood Pressure Position Blood Pressure Position [Left Arm] Pulse Oximetry 96 97 98 Oxygen Delivery Method Oxygen Flow Rate 01/30/19 01:01 01/30/19 01:15 01/30/19 01:16 Temperature Temperature Source Sepsis Recent Fever Within 48 Hours Sepsis New/Unexplained Change in Mental Status Sepsis Action Taken by Nursing Pulse Rate 67 71 72 Pulse Rate [Left Apical] Pulse Rate from SpO2 Sensor 68 70 72 Pulse Rhythm Pulse Rhythm [Left Apical] Pulse Strength Pulse Strength [Left Apical] Respiratory Rate 16 14 17 Respiratory Effort / Characteristics Respiratory Depth Respiratory Pattern Blood Pressure 127/89 Blood Pressure [Left Arm] Blood Pressure Mean 101 Blood Pressure Mean [Left Arm] Blood Pressure Position Blood Pressure Position [Left Arm] Pulse Oximetry 98 97 96 Oxygen Delivery Method Oxygen Flow Rate 01/30/19 01:30 01/30/19 01:31 01/30/19 01:45 Temperature Temperature Source Sepsis Recent Fever Within 48 Hours Sepsis New/Unexplained Change in Mental Status Sepsis Action Taken by Nursing Pulse Rate 76 77 74 Pulse Rate [Left Apical] Pulse Rate from SpO2 Sensor 75 77 75 Pulse Rhythm Pulse Rhythm [Left Apical] Pulse Strength Pulse Strength [Left Apical] Respiratory Rate 21 20 14 Respiratory Effort / Characteristics Respiratory Depth Respiratory Pattern Blood Pressure 130/98 132/90 Blood Pressure [Left Arm] Blood Pressure Mean 108 104 Blood Pressure Mean [Left Arm] Blood Pressure Position Blood Pressure Position [Left Arm] Pulse Oximetry 96 94 97 Oxygen Delivery Method Oxygen Flow Rate 01/30/19 01:46 01/30/19 02:00 01/30/19 02:01 Temperature Temperature Source Sepsis Recent Fever Within 48 Hours Sepsis New/Unexplained Change in Mental Status Sepsis Action Taken by Nursing Pulse Rate 82 71 75 Pulse Rate [Left Apical] Pulse Rate from SpO2 Sensor 75 71 75 Pulse Rhythm Pulse Rhythm [Left Apical] Pulse Strength Pulse Strength [Left Apical] Respiratory Rate 23 14 21 Respiratory Effort / Characteristics Respiratory Depth Respiratory Pattern Blood Pressure 134/91 Blood Pressure [Left Arm] Blood Pressure Mean 105 Blood Pressure Mean [Left Arm] Blood Pressure Position Blood Pressure Position [Left Arm] Pulse Oximetry 97 95 94 Oxygen Delivery Method Oxygen Flow Rate 01/30/19 02:15 01/30/19 02:16 01/30/19 02:30 Temperature Temperature Source Sepsis Recent Fever Within 48 Hours Sepsis New/Unexplained Change in Mental Status Sepsis Action Taken by Nursing Pulse Rate 82 68 85 Pulse Rate [Left Apical] Pulse Rate from SpO2 Sensor 78 69 82 Pulse Rhythm Pulse Rhythm [Left Apical] Pulse Strength Pulse Strength [Left Apical] Respiratory Rate 20 15 22 Respiratory Effort / Characteristics Respiratory Depth Respiratory Pattern Blood Pressure 136/93 Blood Pressure [Left Arm] Blood Pressure Mean 107 Blood Pressure Mean [Left Arm] Blood Pressure Position Blood Pressure Position [Left Arm] Pulse Oximetry 96 97 94 Oxygen Delivery Method Oxygen Flow Rate 01/30/19 02:31 Temperature Temperature Source Sepsis Recent Fever Within 48 Hours Sepsis New/Unexplained Change in Mental Status Sepsis Action Taken by Nursing Pulse Rate 69 Pulse Rate [Left Apical] Pulse Rate from SpO2 Sensor 70 Pulse Rhythm Pulse Rhythm [Left Apical] Pulse Strength Pulse Strength [Left Apical] Respiratory Rate 14 Respiratory Effort / Characteristics Respiratory Depth Respiratory Pattern Blood Pressure 134/86 Blood Pressure [Left Arm] Blood Pressure Mean 102 Blood Pressure Mean [Left Arm] Blood Pressure Position Blood Pressure Position [Left Arm] Pulse Oximetry 97 Oxygen Delivery Method Oxygen Flow Rate Home Medications Current Medication List: was personally reviewed by me Laboratory Data Attestation: I reviewed the patient's lab results. Result diagrams: 01/29/19 Unknown 01/29/19 Unknown Lab Results 01/29/19 01/29/19 01/29/19 Range/Units 21:49 22:50 23:50 WBC (4.8-10.8) K/uL RBC (4.7-6.1) M/uL Hgb (14.0-18.0) g/dL Hct (42-52) % MCV (80-100) fL MCH (25-34) pg MCHC (32-36) g/dL RDW Std Deviation (36.4-46.3) fL RDW Coeff of Hazel (11.5-14.5) % Plt Count (130-400) K/uL MPV (7.4-10.4) fL Immature Gran % (Auto) % Neut % (Auto) % Lymph % (Auto) % [place] % (Auto) % Eos % (Auto) % Baso % (Auto) % Immature Gran # (Auto) (0.00-0.02) K/uL Neut # (Auto) (1.4-6.5) K/uL Lymph # (Auto) (1.2-3.4) K/uL [place] # (Auto) (0.11-0.59) K/uL Eos # (Auto) (0-0.5) K/uL Baso # (Auto) (0-0.2) K/uL Activ Coag Time Kaolin 257 H (94-140) SECONDS POC D-Dimer 432 (0-450) ng/mlFEU Sodium (136-145) mmol/L Potassium (3.5-5.1) mmol/L Chloride (98-107) mmol/L Carbon Dioxide (21-32) mmol/L Anion Gap (3-11) BUN (7-18) mg/dl Creatinine (0.6-1.4) mg/dl Est Cr Clr Drug Dosing ml/min Est GFR ( Amer) Est GFR (Non-Af Amer) BUN/Creatinine Ratio (10-20) Glucose (70-99) mg/dl Calcium (8.5-10.1) mg/dl Total Bilirubin (0.2-1) mg/dl AST (15-37) U/L ALT (12-78) U/L Alkaline Phosphatase (45-117) U/L POC Troponin I < 0.03 (0-0.045) ng/ml Troponin I (0-0.045) ng/ml Total Protein (6.4-8.2) gm/dl Albumin (3.4-5.0) gm/dl Globulin (2.5-4.0) gm/dl Albumin/Globulin Ratio (0.9-2) Lipase (73-393) U/L Nasal Screen MRSA (PCR) Negative (Negative) 01/29/19 01/29/19 Range/Units Unknown Unknown WBC 9.72 (4.8-10.8) K/uL RBC 5.49 (4.7-6.1) M/uL Hgb 17.4 (14.0-18.0) g/dL Hct 48.6 (42-52) % MCV 88.5 (80-100) fL MCH 31.7 (25-34) pg MCHC 35.8 (32-36) g/dL RDW Std Deviation 41.3 (36.4-46.3) fL RDW Coeff of Hazel 12.8 (11.5-14.5) % Plt Count 230 (130-400) K/uL MPV 11.0 H (7.4-10.4) fL Immature Gran % (Auto) 0.2 % Neut % (Auto) 52.9 % Lymph % (Auto) 36.5 % [place] % (Auto) 7.6 % Eos % (Auto) 2.6 % Baso % (Auto) 0.2 % Immature Gran # (Auto) 0.02 (0.00-0.02) K/uL Neut # (Auto) 5.14 (1.4-6.5) K/uL Lymph # (Auto) 3.55 H (1.2-3.4) K/uL [place] # (Auto) 0.74 H (0.11-0.59) K/uL Eos # (Auto) 0.25 (0-0.5) K/uL Baso # (Auto) 0.02 (0-0.2) K/uL Activ Coag Time Kaolin (94-140) SECONDS POC D-Dimer (0-450) ng/mlFEU Sodium 140 (136-145) mmol/L Potassium 3.8 (3.5-5.1) mmol/L Chloride 103 (98-107) mmol/L Carbon Dioxide 32 (21-32) mmol/L Anion Gap 5.0 (3-11) BUN 13 (7-18) mg/dl Creatinine 1.08 (0.6-1.4) mg/dl Est Cr Clr Drug Dosing 82.0 ml/min Est GFR ( Amer) 91.0 Est GFR (Non-Af Amer) 78.5 BUN/Creatinine Ratio 11.8 (10-20) Glucose 211 H (70-99) mg/dl Calcium 9.2 (8.5-10.1) mg/dl Total Bilirubin 0.5 (0.2-1) mg/dl AST 23 (15-37) U/L ALT 39 (12-78) U/L Alkaline Phosphatase 109 (45-117) U/L POC Troponin I (0-0.045) ng/ml Troponin I 0.025 (0-0.045) ng/ml Total Protein 8.2 (6.4-8.2) gm/dl Albumin 3.9 (3.4-5.0) gm/dl Globulin 4.3 H (2.5-4.0) gm/dl Albumin/Globulin Ratio 0.9 (0.9-2) Lipase 217 (73-393) U/L Nasal Screen MRSA (PCR) (Negative) Administered Medications Sodium Chloride (Nss 1000ml) 1,000 mls @ 100 mls/hr IV .Q10H ISMAEL Stop: 02/28/19 23:44 Last Admin: 01/29/19 23:50 Dose: 100 mls/hr Documented by: [id number] Discontinued Medications Fentanyl Citrate (Fentanyl Citrate) 50 mcg IV NOW STA Stop: 01/29/19 22:20 Last Admin: 01/29/19 22:29 Dose: 50 mcg Documented by: [id number] Fentanyl Citrate (Fentanyl Citrate) Confirm Administered Dose 100 mcg .ROUTE .STK-MED ONE Stop: 01/29/19 22:24 Last Admin: 01/29/19 22:30 Dose: Not Given Documented by: [id number] Heparin Sodium (Porcine) (Heparin Sodium (Porcine)) Confirm Administered Dose 10,000 units .ROUTE .STK-MED ONE Stop: 01/29/19 22:22 Last Admin: 01/29/19 22:30 Dose: Not Given Documented by: [id number] Heparin Sodium (Porcine) (Heparin Iv Bolus ([employer] Use Only)) Confirm Administered Dose 10,000 units .ROUTE .STK-MED ONE Stop: 01/29/19 23:24 Last Admin: 01/29/19 23:32 Dose: 4,000 units Documented by: [id number] Heparin Sodium/Sodium Chloride (Heparin Sod/Nss 2 Units/Ml) Confirm Administered Dose 3,000 units IV .STK-MED ONE Stop: 01/29/19 23:24 Last Admin: 01/29/19 23:33 Dose: 3,000 units Documented by: [id number] Heparin Sodium (Porcine) 5,000 (units/ Syringe) 5 mls @ 1 mls/min IV ONE ONE Stop: 01/29/19 22:20 Last Admin: 01/29/19 22:29 Dose: 1 mls/min Documented by: [id number] Cosigned by: [id number] Metoprolol Tartrate (Lopressor) Confirm Administered Dose 5 mg IV .STK-MED ONE Stop: 01/29/19 23:00 Last Admin: 01/29/19 23:31 Dose: 5 mg Documented by: [id number] Midazolam HCl (Versed) Confirm Administered Dose 2 mg .ROUTE .STK-MED ONE Stop: 01/29/19 23:23 Last Increment: 01/29/19 23:32 Dose: 1 mg Documented by: [id number] Nicardipine HCl (Cardene) Confirm Administered Dose 25 mg .ROUTE .STK-MED ONE Stop: 01/29/19 23:24 Last Admin: 01/29/19 23:32 Dose: 25 mg Documented by: [id number] Nitroglycerin/Dextrose (Nitroglycerin/D5w 100 Mcg/Ml 20ml Syringe) Confirm Administered Dose 2,000 mcg .ROUTE .STK-MED ONE Stop: 01/29/19 23:24 Last Admin: 01/29/19 23:33 Dose: 2,000 mcg Documented by: [id number] Ondansetron HCl (Zofran) 4 mg IV NOW STA Stop: 01/29/19 22:20 Last Admin: 01/29/19 22:29 Dose: 4 mg Documented by: [id number] Ondansetron HCl (Zofran) Confirm Administered Dose 4 mg .ROUTE .STK-MED ONE Stop: 01/29/19 22:23 Last Admin: 01/29/19 22:30 Dose: Not Given Documented by: [id number] Ticagrelor (Brilinta) Confirm Administered Dose 180 mg PO .STK-MED ONE Stop: 01/29/19 22:22 Last Admin: 01/29/19 22:29 Dose: Not Given Documented by: [id number] Ticagrelor (Brilinta) 180 mg PO ONE ONE Stop: 01/29/19 22:20 Last Admin: 01/29/19 22:29 Dose: 180 mg Documented by: [id number] Imaging Data Radiologist's Impression: Radiology results as stated below per my review and the radiologist's interpretation: SINGLE VIEW CHEST CLINICAL HISTORY: Atypical chest pain. FINDINGS: An AP, portable, upright chest radiograph is obtained. No prior studies are available for comparison at the time of dictation. The examination is degraded by portable technique and patient rotation. The cardiomediastinal silhouette is unremarkable. Nonspecific interstitial thickening is likely chronic. No airspace consolidation or large pleural effusion is identified. No pneumothorax is seen. The skeletal structures are osteopenic. The bony thorax is grossly intact. IMPRESSION: No acute cardiopulmonary abnormality. Electronically signed by: Zeke Bello M.D. 01/29/2019 10:41 PM ECG Data Attestation: I personally reviewed and interpreted this ECG as follows: Indication: chest pain Rate (beats per minute): 88 Rhythm: sinus rhythm Findings: + other (Concerning for an acute DC), + PVC (Frequent), + ST elevation (Anterior and lateral) and + left axis deviation Blood Pressure Blood Pressure Findings: Elevated blood pressure Blood Pressure Disposition: further management by hospitalist Discharge Plan Visit Data *Final* Discharge Date/Time: 01/29/19 22:35 Chief Complaint: Heart Alert ED Provider: Krunal Barnett Discharge Problem: Acute DC Patient Disposition: Admitted As Inpatient Discharge Instructions Interventions: ED Discharge Assessment Last Done: 01/29/19 22:35 Discharge Problem: Acute DC Qualifiers: Myocardial infarction type: ST elevation myocardial infarction Involved coronary artery: LAD coronary artery Qualified Code(s): I21.02 - ST elevation (STEMI) myocardial infarction involving left anterior descending coronary artery The scribe's documentation has been prepared under my direction and personally reviewed by me in its entirety. I confirm that the note above accurately reflects all work, treatment, procedures, and medical decision making performed by me.
[2019-01-30 05:43] LABS: Basophils # (auto) 0.01 K/uL (0-0.2); Basophils % (auto) 0.1 %; Eosinophils # (auto) 0.04 K/uL (0-0.5); Eosinophils % (auto) 0.4 %; Hematocrit (blood only) 44.2 % (42-52); Hemoglobin 15.6 g/dL (14.0-18.0); Immature Granulocytes # (auto) 0.02 K/uL (0.00-0.02); Immature Granulocytes % (auto) 0.2 %; Lymphocytes # (auto) 1.76 K/uL (1.2-3.4); Lymphocytes % (auto) 15.9 %; Mean Corpuscular Hgb Conc 35.3 g/dL (32-36); Mean Corpuscular Volume 88.6 fL (80-100); Mean Platelet Volume 10.7 fL (7.4-10.4); Monocytes # (auto) 0.82 K/uL (0.11-0.59); Monocytes % (auto) 7.4 %; Neutrophils # (auto) 8.42 K/uL (1.4-6.5); Platelet Count 218 K/uL (130-400); RDW Coefficient of Variation 12.9 % (11.5-14.5); RDW Standard Deviation 41.5 fL (36.4-46.3); Red Blood Count 4.99 M/uL (4.7-6.1); White Blood Count 11.07 K/uL (4.8-10.8)
[2019-01-30] MEDS ORDERED: METOPROLOL TARTRATE 1 MG/ML VIAL IV STA (05:57)
[2019-01-30 06:11] LABS: BUN Creatinine Ratio 12.2 (10-20); Calcium 8.1 mg/dl (8.5-10.1); Creatinine Clr Calc Pharmacy 109.3 ml/min; Est GFR (African American) 118.4; Est GFR (Non-African American) 102.2; Magnesium 1.8 mg/dl (1.8-2.4); Potassium 3.8 mmol/L (3.5-5.1)
[2019-01-30 06:27] LABS: Estimated Average Glucose 157 mg/dl; Hemoglobin A1C 7.1 % (4.5-5.6)
[2019-01-30 06:54] LABS: Troponin I 40.8 ng/ml (0-0.045)
--- NOTE | 2019-01-30 07:10 | Critical Care Consultation ---
Date of Consultation January 30, 2019 Assessment & Plan (1) ST elevation myocardial infarction (STEMI) of anterior wall: Reason Critically Ill: 53-year-old male admitted for anterior STEMI, post cath with successful KIERRA placed to LAD with immediate resolution of chest pain. Neuro - CAM ICU: Negative Cardiac - CAD/acute STEMIstatus post PCI with KIERRA to mid LAD -Initial EKG showed ST elevation anterior leads, post cath EKG showed ST elevation resolved -Initial troponin 0 0.06, post cath 40,000, will continue to monitor for downtrending -Lipid panel normal -Start on aspirin, Lipitor, metoprolol, Brilinta, lisinopril -Follow-up cardiology recommendations Hypertension -Increase metoprolol from 25-50 -Increase lisinopril from 5-20 mg daily Respiratory - Currently on room air, chestx-ray negative for acute process GI - LFTs within normal limits Heart healthy, carb consistent diet RENAL/LYTES - Normal saline at 100 mL/h Maximize electrolytes, monitor with routine BMPs - Strict I's and O's ENDO - DM type IIno prior history, hemoglobin A1c 7.1 and patient hyperglycemic on admission -ICU hyperglycemic protocol -Referral to elementary educator for new diagnosis of type 2 diabetes -On insulin sliding scale HEME - H&H stable, routine CBCs ID - No indication for infectious process LINES/IV ACCESS - Peripheral IVs DVT PROPHYLAXIS - SCDs, Lovenox subcu Patient is ambulatory (2) Diabetes type 2 with atherosclerosis of arteries of extremities: Supervising Physician Co-Signing Physician Notes I have personally evaluated and examined this patient. I agree with assessment and plan of Selma MCLAUGHLIN. Patient was discussed in multidisciplinary rounds I discussed the patient's care with Dr. Hall of cardiology Patient is stable for downgrade to telemetry status. History of Present Illness Attending Physician: Madyson Bhatti DO History of Present Illness 53-year-old male with no significant past medical history, who presented to the ED last night after developing crushing substernal chest pain while getting out of shower with associated nausea and vomiting the cysts that lasted for approximately 1 hour before reaching the ED. Was given nitro and aspirin, EKG showed elevated ST segment's. Heparin and Ticagrelor administers and transferred to [employer]. Successful PCI placed to mid LAD with KIERRA. Admitted to ICU. This morning the patient appears comfortable resting in bed. He denies chest pain, nausea and vomiting, diaphoresis, shortness of breath, syncope, palpitations. No events of dysrhythmia overnight. Post catheter EKG negative for ST elevation. Of note, patient hemoglobin A1c 7.1. No prior history of diabetes but family history. Will consult elementary educator for new diagnosis. Patient remains hemodynamically stable and likely transfer from ICU status today. Allergies Allergy/AdvReac Type Severity Reaction Status Date / Time No Known Allergies Allergy Unverified 01/23/17 08:37 Patient History Medical History CAD (coronary artery disease) Anterior STEMI 01/29/19 s/p cath with KIERRA to LAD Surgical History S/P cardiac cath Family History Other Coronary heart disease Diabetes Hypertension Social History Preferred Language: Malawian Communication Ability: Effective Formula Maker Required: No Beliefs That Will Affect Care: None Current Living Situation: Alone Other Information That Helps Us Care for You: No Feels Safe at Home: Yes Safety Concerns: Feels Safe At This Time Smoking Status: Never smoker Hx Alcohol Use: Yes Hx Substance Use: No Review of Systems 12 system ROS negative except for as noted in HPI. See above Physical Exam Vital Signs (Past 24 Hours): Last Vital Signs Temp 36.7 C 01/29/19 23:44 Pulse 79 01/30/19 06:38 Resp 14 01/30/19 02:31 BP 153/98 H 01/30/19 06:38 Pulse Ox 97 01/30/19 02:31 Constitutional: WD/WN, vitals as above cooperative and comfortable Eyes: PERRL, conjunctivae normal, anicteric sclerae ENMT: external ear and nose normal, oropharynx normal Neck: trachea midline, no thyromegaly Respiratory: normal respiratory effort, lungs clear to auscultation Cardiovascular: RRR, no murmur, no edema Heart Sounds: normal S1 and normal S2 Vessels: no JVD Gastrointestinal (Abdomen): normal bowel sounds, soft, nontender, no hepatosplenomegaly Neurologic: PERRL, EOMI, accommodation nl, no face palsy, no dysarthria Results & Data Laboratory Results Laboratory Results - last 24 hr 01/29/19 01/29/19 01/29/19 21:49 22:50 23:50 WBC RBC Hgb Hct MCV MCH MCHC RDW Std Deviation RDW Coeff of Hazel Plt Count MPV Immature Gran % (Auto) Neut % (Auto) Lymph % (Auto) Saunders % (Auto) Eos % (Auto) Baso % (Auto) Immature Gran # (Auto) Neut # (Auto) Lymph # (Auto) Saunders # (Auto) Eos # (Auto) Baso # (Auto) Activ Coag Time Kaolin 257 H POC D-Dimer 432 Sodium Potassium Chloride Carbon Dioxide Anion Gap BUN Creatinine Est Cr Clr Drug Dosing Est GFR ( Amer) Est GFR (Non-Af Amer) BUN/Creatinine Ratio Glucose POC Glucose Estimat Average Glucose Hemoglobin A1c Calcium Magnesium Total Bilirubin AST ALT Alkaline Phosphatase POC Troponin I < 0.03 Troponin I Total Protein Albumin Globulin Albumin/Globulin Ratio Triglycerides Cholesterol LDL Cholesterol, Calc VLDL Cholesterol, Calc HDL Cholesterol Cholesterol/HDL Ratio Lipase Nasal Screen MRSA (PCR) Negative 01/29/19 01/29/19 01/30/19 Unknown Unknown 05:32 WBC 9.72 11.07 H RBC 5.49 4.99 Hgb 17.4 15.6 Hct 48.6 44.2 MCV 88.5 88.6 MCH 31.7 31.3 MCHC 35.8 35.3 RDW Std Deviation 41.3 41.5 RDW Coeff of Hazel 12.8 12.9 Plt Count 230 218 MPV 11.0 H 10.7 H Immature Gran % (Auto) 0.2 0.2 Neut % (Auto) 52.9 76.0 Lymph % (Auto) 36.5 15.9 Saunders % (Auto) 7.6 7.4 Eos % (Auto) 2.6 0.4 Baso % (Auto) 0.2 0.1 Immature Gran # (Auto) 0.02 0.02 Neut # (Auto) 5.14 8.42 H Lymph # (Auto) 3.55 H 1.76 Saunders # (Auto) 0.74 H 0.82 H Eos # (Auto) 0.25 0.04 Baso # (Auto) 0.02 0.01 Activ Coag Time Kaolin POC D-Dimer Sodium 140 Potassium 3.8 Chloride 103 Carbon Dioxide 32 Anion Gap 5.0 BUN 13 Creatinine 1.08 Est Cr Clr Drug Dosing 82.0 Est GFR ( Amer) 91.0 Est GFR (Non-Af Amer) 78.5 BUN/Creatinine Ratio 11.8 Glucose 211 H POC Glucose Estimat Average Glucose Hemoglobin A1c Calcium 9.2 Magnesium Total Bilirubin 0.5 AST 23 ALT 39 Alkaline Phosphatase 109 POC Troponin I Troponin I 0.025 Total Protein 8.2 Albumin 3.9 Globulin 4.3 H Albumin/Globulin Ratio 0.9 Triglycerides Cholesterol LDL Cholesterol, Calc VLDL Cholesterol, Calc HDL Cholesterol Cholesterol/HDL Ratio Lipase 217 Nasal Screen MRSA (PCR) 01/30/19 01/30/19 01/30/19 05:32 05:32 07:30 WBC RBC Hgb Hct MCV MCH MCHC RDW Std Deviation RDW Coeff of Hazel Plt Count MPV Immature Gran % (Auto) Neut % (Auto) Lymph % (Auto) Saunders % (Auto) Eos % (Auto) Baso % (Auto) Immature Gran # (Auto) Neut # (Auto) Lymph # (Auto) Saunders # (Auto) Eos # (Auto) Baso # (Auto) Activ Coag Time Kaolin POC D-Dimer Sodium 138 Potassium 3.8 Chloride 106 Carbon Dioxide 26 Anion Gap 6.0 BUN 10 Creatinine 0.81 Est Cr Clr Drug Dosing 109.3 Est GFR ( Amer) 118.4 Est GFR (Non-Af Amer) 102.2 BUN/Creatinine Ratio 12.2 Glucose 159 H POC Glucose 225 H Estimat Average Glucose 157 Hemoglobin A1c 7.1 H Calcium 8.1 L Magnesium 1.8 Total Bilirubin AST ALT Alkaline Phosphatase POC Troponin I Troponin I 40.800 H* Total Protein Albumin Globulin Albumin/Globulin Ratio Triglycerides 125 Cholesterol 183 LDL Cholesterol, Calc 110 VLDL Cholesterol, Calc 25 HDL Cholesterol 48 Cholesterol/HDL Ratio 4 Lipase Nasal Screen MRSA (PCR) Medications Administered Active Medications Acetaminophen (Tylenol) 650 mg PO Q4H PRN PRN Reason: Mild Pain (scale 1-3) Stop: 02/28/19 23:40 Aspirin (Ecotrin Ectab) 81 mg PO QAM [facility] Stop: 03/01/19 08:59 Atorvastatin Calcium (Lipitor) 80 mg PO QAM [facility] Stop: 03/01/19 08:59 Sodium Chloride (Nss 1000ml) 1,000 mls @ 100 mls/hr IV .Q10H [facility] Stop: 02/28/19 23:44 Last Admin: 01/30/19 07:12 Dose: 100 mls/hr Documented by: Insulin Aspart (Novolog Flexpen) 0 units SC ACHS [facility] Stop: 03/01/19 07:44 Insulin Glargine (Lantus Solostar Pen) 10 units SC TODAY@0800 ONE Stop: 01/30/19 08:01 Lisinopril (Zestril) 5 mg PO QAM [facility] Stop: 03/01/19 08:59 Metoprolol Tartrate (Lopressor) 25 mg PO BID [facility] Stop: 03/01/19 08:59 Miscellaneous (Icu Protocol For Hyperglycemia) 1 ea N/A PRN PRN; Protocol PRN Reason: Hyperglycemia Protocol Stop: 01/31/19 23:44 Miscellaneous Information (Consult Glycemic Management Pharmacy) 1 ea N/A UD PRN PRN Reason: Consult Stop: 03/01/19 07:41 Ondansetron HCl (Zofran) 4 mg IV Q6H PRN PRN Reason: Nausea And Vomiting Stop: 02/28/19 23:40 Ticagrelor (Brilinta) 90 mg PO BID [facility] Stop: 03/01/19 08:59
[2019-01-30] MEDS: SODIUM CHLORIDE 0.9% 1000ML 1,000 ML IV SCH (07:12)
[2019-01-30] MEDS ORDERED: PHARMACY GLYCEMIC MGMT CONSULT PRN (07:42)
[2019-01-30] MEDS: INSULIN ASPART 100 UNITS/ML 3 ML PEN SC SCH ×4 (07:53→20:33)
[2019-01-30] MEDS: TICAGRELOR 90 MG TAB PO SCH ×2 (07:59→20:37)
[2019-01-30] MEDS: ASPIRIN 81 MG ECTAB PO SCH (08:00)
[2019-01-30] MEDS: ATORVASTATIN 40 MG TAB PO SCH (08:00)
[2019-01-30] MEDS ORDERED: INSULIN GLARGINE SOLOSTAR 100 UNITS/ML 3 ML PEN SC ONE ×2 (08:00→21:00)
[2019-01-30] MEDS ORDERED: LISINOPRIL 5 MG TAB PO SCH (09:00)
[2019-01-30] MEDS ORDERED: ICU PROTOCOL FOR HYPERGLYCEMIA SCH (09:00)
[2019-01-30] MEDS ORDERED: METOPROLOL TARTRATE 25 MG TAB PO SCH (09:00)
--- NOTE | 2019-01-30 11:00 | Pharmacy Report ---
Glycemic Control Consultation - Date of Service January 30, 2019 - Scope Scope: Glycemic Pharmacist consulted by Saul Christianson PA-C on 01/30/19 for glycemic control and to write orders per [facility] inpatient glycemic control protocol - Objective Weight: 78.3 kg Accuchecks BSG (last 24hrs): 01/29/19 01/30/19 01/30/19 Unknown 05:32 07:30 Glucose 211 H 159 H POC Glucose 225 H Laboratory Data (last 24hrs): 01/29/19 01/30/19 Unknown 05:32 Potassium 3.8 3.8 Carbon Dioxide 32 26 Anion Gap 5.0 6.0 Creatinine 1.08 0.81 Est Cr Clr Drug Dosing 82.0 109.3 HbA1c: Hemoglobin A1c 7.1 % (4.5-5.6) H 01/30/19 05:32 - Recent Pertinent Medications Outpatient Anti-diabetic Regimen: * N/A * A1c = 7.1% 01/30/19 Risk Factors for Insulin Resistance: * Recent Surgery: Cardiac Cath * Diet: T2DM/Heart Healthy - Assessment & Plan Assessment & Plan: ASSESSMENT: * 53 yo male admitted for STEMI, underwent cardiac cauterization with KIERRA stent placement * BSG was elevated in 200s on admission, fasting this AM 150s, POC check 225 * A1c 7.1% indicative of diabetes, patient with no prior medications/diagnosis * Will initiate lantus/novolog while inpatient, patient can likely be started on oral agent (metformin) at discharge PLAN FOR INPATIENT GLYCEMIC CONTROL: * Basal insulin * Lantus 10 units this AM * Scale for PM * BSG <110: Hold * BSG 110-160: 5 units * BSG >160: 10 units * Bolus insulin * NovoLog per scale ACHS or Q6hrs while NPO * Goal Range: Low 110 mg/dL - High 160 mg/dL * Correction Factor: 30 mg/dL/unit * Nutritional / Prandial insulin per carb ratio of 1 unit per 15 grams CHO consumed * Please note that the plan above was derived based on current level of insulin resistance and hospital stress. These recommendations are appropriate for in patient admission only. Plan of care upon discharge will need to be reassessed to avoid potential outpatient hypo/hyperglycemia. Thank you.
[2019-01-30 14:54] LABS: Prothrombin Time 10.5 Seconds (9.0-12.0)
--- NOTE | 2019-01-30 15:15 | Cardiology Progress Note ---
Date of Service January 30, 2019 Assessment & Plan (1) ST elevation myocardial infarction (STEMI) of anterior wall: 2. Ischemic cardiomyopathy 3. Diabetes mellitus 4. Hypertension 5. Dyslipidemia Patient chest pain-free, hemodynamically and electrically stable. Troponin peaked. Echo shows mild to moderate LV dysfunction with LAD distribution wall motion abnormal Going forward: Continue dual antiplatelet therapy with aspirin, ticagrelor. Titrate up beta-celia, MAGUE inhibitor Continue high intensity statin From a cardiac standpoint okay to transfer to telemetry today. If remains stable likely discharged home tomorrow a.m. Subjective Feeling well. No recurrent chest pain. No other new concerns this morning. Telemetry reviewno events Review of Systems 10 point review of systems was completed and was otherwise negative unless stated in HPI Physical Exam Vital Signs (Past 24 Hours): Last Vital Signs Temp 36.8 C 01/30/19 08:00 Pulse 72 01/30/19 11:00 Resp 21 01/30/19 11:00 BP 130/84 01/30/19 11:00 Pulse Ox 94 01/30/19 11:00 Physical Exam: General: Comfortable, no acute distress Eyes: Sclerae anicteric, extraocular movements intact HENT: Oropharynx clear mucous membranes moist Neck: Normal carotid upstrokes, no bruits. No JVD. Lungs: Clear to auscultation bilaterally, no rhonchi or wheezes Cardiac: Regular rate and rhythm, no murmurs, rubs or gallops. Vascular: Right radial artery access site with no ecchymosis, hematoma. Distal pulse and sensation intact. Abdomen: Soft, nontender, nondistended, positive bowel sounds. Extremities: Well perfused, no peripheral edema Skin: No rashes or lesions. Neuro: Nonfocal Psych: Alert orient x3, normal affect and mood
[2019-01-30] MEDS: ENOXAPARIN INJ 40 MG/0.4 ML SYR SQ SCH (16:17)
[2019-01-30] MEDS: METOPROLOL TARTRATE 50 MG TAB PO SCH (20:37)
--- NOTE | 2019-01-30 23:53 | Hospitalist Progress Note ---
Date of Service January 30, 2019 Assessment & Plan (1) ST elevation myocardial infarction (STEMI) of anterior wall: ST elevation myocardial infarction (STEMI) of anterior wall: Patient with anterior STEMI s/p cardiac catheterization revealing 100% occlusion of LAD s/p KIERRA x 1. Presently HD stable, CP free, no complaints -Admitted to MICU -Trop peaked. -Ok to transfer to tele. -cont. dual antiplatele with ticragrelor and ASA. cont. beta celia and james and high intensity statin -Neurovascular checks per protocol -Nitro PRN CP Echo shows mild to moderate LV dysfunction with LAD distribution wall motion abnormal (2) Diabetes type 2 with atherosclerosis of arteries of extremities: A1C is 7.1 Will likley discharge patient on metformin. Spent 25 minutes in management of patient. Subjective 53 yo male reports feeling well. He denies any chest pain, SOB, nausea, or vomiting. Constitutional: no sweats and no malaise Eyes: no blind spots Ear, Nose, Mouth, Throat: no ear pain Respiratory: no cough Cardiovascular: no chest pain Gastrointestinal: no abdominal pain and no early satiety Genitourinary (Male): no dysuria Musculoskeletal: no back pain Integumentary: no acne Neurologic: no gait abnormality Psychiatric: no behavioral changes Endocrine: no polydipsia Hematologic / Lymphatic: no easy bleeding Physical Exam Vital Signs (Past 24 Hours): Last Vital Signs Temp 37.3 C 01/30/19 23:13 Pulse 68 01/30/19 23:13 Resp 22 01/30/19 23:13 BP 102/67 01/30/19 23:13 Pulse Ox 94 01/30/19 23:13 Physical Exam: General: patient resting comfortably, NAD, non-toxic in appearance, AA&O x 4 Skin: warm, dry, intact, no rashes or lesions HEENT: NC/AT, PERRL, EOMI, anicteric sclera, conjunctiva without injection, external ear normal to inspection and nontender, nares patent, moist mucus membranes, dentition intact, no oropharyngeal lesions, neck supple, trachea midline, no LAD, no thyromegaly, no JVD Heart: +S1/S2, regular, no m/r/g Lungs: equal air entry bilaterally, no rales/rhonchi/wheezes Abd: +BS, soft, NT/ND, no masses/organomegaly/ascites Ext: warm, 2+ pulses in UE/LE bilaterally, no clubbing/cyanosis or edema, hemostasis band on right wrist, no bleeding Neuro: nonfocal, patient AA&O x 4, speech intact, no facial droop, moving all extremities on command with equal strength 5/5
[2019-01-31 07:09] LABS: BUN Creatinine Ratio 15.7 (10-20); Calcium 8.1 mg/dl (8.5-10.1); Creatinine Clr Calc Pharmacy 91.8 ml/min; Est GFR (African American) 114.5; Est GFR (Non-African American) 98.8; Potassium 3.5 mmol/L (3.5-5.1)
[2019-01-31] MEDS: ENOXAPARIN INJ 40 MG/0.4 ML SYR SQ SCH (07:37)
[2019-01-31] MEDS: METOPROLOL TARTRATE 50 MG TAB PO SCH (07:38)
[2019-01-31] MEDS: ATORVASTATIN 40 MG TAB PO SCH (07:38)
[2019-01-31] MEDS: TICAGRELOR 90 MG TAB PO SCH (07:39)
[2019-01-31] MEDS: INSULIN ASPART 100 UNITS/ML 3 ML PEN SC SCH (07:39)
[2019-01-31] MEDS: ASPIRIN 81 MG ECTAB PO SCH (08:34)
[2019-01-31] MEDS ORDERED: INSULIN GLARGINE SOLOSTAR 100 UNITS/ML 3 ML PEN SC SCH (09:00)
[2019-01-31] MEDS ORDERED: LISINOPRIL 20 MG TAB PO SCH (09:00)
--- NOTE | 2019-01-31 09:44 | Pharmacy Report ---
Pharmacy Glycemic Short Note 2 - Date of Service January 31, 2019 - Glycemic Short BSG Results (Last 24 hours): 01/30/19 01/30/19 01/30/19 11:08 16:11 20:32 Glucose POC Glucose 181 H 156 H 128 H 01/31/19 01/31/19 06:05 07:07 Glucose 133 H POC Glucose 129 H OUTPATIENT ANTIDIABETIC REGIMEN: * N/A * A1c 7.1% 01/30 ASSESSMENT: * BSGs improved with addition of lantus/novolog * Fasting within goal range- will split lantus dosing evenly between morning/bedtime * Continue current CF/CR for now PLAN FOR INPATIENT GLYCEMIC CONTROL: * Hold outpatient oral diabetes medications * Basal insulin * Lantus 8 units SQ BID * Bolus insulin * NovoLog per scale ACHS or Q6hrs while NPO * Goal Range: Low 110 mg/dL - High 140 mg/dL * Correction Factor: 30 mg/dL/unit * Nutritional / Prandial insulin per carb ratio of 1 unit per 12 grams CHO consumed PLAN FOR DISCHARGE: * New diagnosis of type II diabetes, recommend initiation/titration of metformin for outpatient use and close follow-up with outpatient provider
--- NOTE | 2019-01-31 11:29 | Cardiology Progress Note ---
Date of Service January 31, 2019 Assessment & Plan (1) ST elevation myocardial infarction (STEMI) of anterior wall: 2. Ischemic cardiomyopathy 3. Diabetes mellitus 4. Hypertension 5. Dyslipidemia Patient chest pain-free, hemodynamically and electrically stable. Troponin peaked. Echo shows mild to moderate LV dysfunction with LAD distribution wall motion abnormal Patient stable from a cardiac standpoint okay for discharge today. Home on dual antiplatelet therapy with aspirin, Brilinta for at least one year. Continue high intensity statin Transition metoprolol to Toprol-XL, continue current lisinopril Follow-up with me in 2 weeks. Subjective Feeling well. No recurrent chest pain. No other new concerns this morning. Telemetry reviewno events Physical Exam Vital Signs (Past 24 Hours): Last Vital Signs Temp 37.1 C 01/31/19 10:59 Pulse 72 01/31/19 10:59 Resp 22 01/31/19 10:59 BP 112/73 01/31/19 10:59 Pulse Ox 94 01/31/19 10:59 Physical Exam: General: Comfortable, no acute distress Eyes: Sclerae anicteric, extraocular movements intact HENT: Oropharynx clear mucous membranes moist Lungs: Clear to auscultation bilaterally, no rhonchi or wheezes Cardiac: Regular rate and rhythm, no murmurs, rubs or gallops. Vascular: Right radial artery access site with no ecchymosis, hematoma. Distal pulse and sensation intact. Abdomen: Soft, nontender, nondistended, positive bowel sounds. Extremities: Well perfused, no peripheral edema Skin: No rashes or lesions. Neuro: Nonfocal Psych: Alert orient x3, normal affect and mood
--- NOTE | 2019-02-09 00:10 | Discharge Summary ---
Date of Service January 31, 2019 Admission HPI Per Admitting Provider Mr. Macdonald is a 53yo C male with no significant past medical history presenting with nausea/vomiting and chest pain. EKG with anterior STEMI. Patient arrived to [facility] ER as a Code Heart and was taken urgently to the optical lab technician with Dr. Hall. Cardiac cath result: LM -angiographically normal LAD -moderate caliber vessel, proximal luminal irregularities, 100% acute mid occlusion after takeoff of moderate caliber second diagonal Circumflex -moderate caliber vessel, 20% mid segment disease. 30-40% ostial OM 2. 20-30% proximal OM 3 RCA -dominant, large caliber, 20% mid segment disease, distal luminal irregularities LVEDP -12 Patient had successful PCI of mid LAD with single drug-eluting stent (2.75 x 33 mm Xience Justina; postdilated with 3.0 NC). Presently feeling well. Denies CP, palpitations, dizziness, lightheadedness. No additional complaints at this time. Principal Diagnosis STEMI Discharge Exam General: patient resting comfortably, NAD, non-toxic in appearance, AA&O x 4 Skin: warm, dry, intact, no rashes or lesions HEENT: NC/AT, PERRL, EOMI, anicteric sclera, conjunctiva without injection, external ear normal to inspection and nontender, nares patent, moist mucus membranes, dentition intact, no oropharyngeal lesions, neck supple, trachea midline, no LAD, no thyromegaly, no JVD Heart: +S1/S2, regular, no m/r/g Lungs: equal air entry bilaterally, no rales/rhonchi/wheezes Abd: +BS, soft, NT/ND, no masses/organomegaly/ascites Ext: warm, 2+ pulses in UE/LE bilaterally, no clubbing/cyanosis or edema, hemostasis band on right wrist, no bleeding Neuro: nonfocal, patient AA&O x 4, speech intact, no facial droop, moving all extremities on command with equal strength 5/5 Discharge Data Allergies Allergy/AdvReac Type Severity Reaction Status Date / Time No Known Allergies Allergy Unverified 01/23/17 08:37 Consultations 01/29/19 23:41 Consult Internal Medicine Routine 01/29/19 23:45 Consult Case Management - Discharge Planning Routine 01/29/19 23:46 Consult Blood Bank Technician Routine 01/31/19 10:24 Consult [facility] fluorescent lamp replacer Routine Procedures Performed Operation Date: 01/29/19 22:20 Actual Procedures s Cath, Left with Cors and Vent - Patrice Hall MD s Cineradiography w/Routine Exam - Patrice Hall MD p Aspiration/PCI w/KIERRA for Stemi - Patrice Hall MD Ordered Studies 01/29/19 22:18 CL Cath Imgs for PACS use only Stat Hospital Course (1) ST elevation myocardial infarction (STEMI) of anterior wall: ST elevation myocardial infarction (STEMI) of anterior wall: Patient with anterior STEMI s/p cardiac catheterization revealing 100% occlusion of LAD s/p KIERRA x 1. Presently HD stable, CP free, no complaints -Admitted to MICU -Trop peaked. -cont. dual antiplatele with ticragrelor and ASA. cont. beta celia and james and high intensity statin -Neurovascular checks per protocol -Nitro PRN CP Echo shows mild to moderate LV dysfunction with LAD distribution wall motion abnormal On day of discharge Appreciate Cardio input: Patient chest pain-free, hemodynamically and electrically stable. Troponin peaked. Echo shows mild to moderate LV dysfunction with LAD distribution wall motion abnormal Patient stable from a cardiac standpoint okay for discharge today. Home on dual antiplatelet therapy with aspirin, Brilinta for at least one year. Continue high intensity statin Transition metoprolol to Toprol-XL, continue current lisinopril Follow-up in 2 weeks. (2) Diabetes type 2 with atherosclerosis of arteries of extremities: A1C is 7.1 Will likley discharge patient on metformin. Spent 25 minutes in management of patient. Total Time Total Time Spent Total Time Spent (In Minutes): 31 Total Time Includes: Examination of the Patient, Discharge Planning, Medication Reconciliation and Communication With Other Providers Discharge Plan Discharge Items Patient Disposition: Home - Self-Care Reason For Visit: STEMI Discharge Diagnosis: STEMI Discharge Goals: Decrease discomfort Activity: Resume your previous activity Non-emergency contact: Primary Care Provider Call non-emergency contact if: you have any medication questions and your symptoms worsen Follow-up/Referrals: PCP,NO [Primary Care Provider] - Diet: Regular Addtl Provider Instructions: Take all medications as prescribed. Start metoprolol succinate 100 mg tonight. Tomorrow, start taking the atorvastatin and skip tonight's dose as you took it this morning. In regards to the metformin, take it on a full stomach. This helps with side effects. On the first week of taking it, take it only once a day. Prescriptions: New lisinopril 20 mg Tablet 20 mg PO QAM Qty: 30 RF: 0 aspirin [Ecotrin Low Strength] 81 mg Tablet,Delayed Release (Dr/Ec) 81 mg PO QAM Qty: 30 RF: 0 Brilinta 90 mg Tablet 90 mg PO BID Qty: 60 RF: 0 metformin 500 mg tablet extended release 24 hr 500 mg PO BID Qty: 60 RF: 0 metoprolol succinate 100 mg tablet extended release 24 hr 100 mg PO HS Qty: 30 RF: 0 atorvastatin 80 mg tablet 80 mg PO HS Qty: 30 RF: 0 Stand-Alone Forms: [employer] [facility] [employer]/Other Patient Handouts: Metformin Hydrochloride Oral tablet, Ticagrelor Oral tablet, Metoprolol Succinate Oral tablet extended-release, Lisinopril Oral tablet, Stent Coronary, Care Incision, Heart Disease Meds Discharge Orders: Discharge Order (Routine); Ordered 01/31/19 Ordered By: Pj Hernadez Admission Data Admit Date/Time: 01/29/19 23:45 Attending Provider: Pj Hernadez Admit Provider: Patrice Hall Primary Care Provider: PCP,NO Other Providers: Madyson Bhatti Brian W Service: Telemetry Other Interventions: Discharge Summary Assessment (RN) Last Done: 01/31/19 10:59 DC Date/Time DO NOT enter until pt leaves facility: 01/31/19 11:57
== END 2019-01-31 11:57 | disposition home or self-care (01) | DRG 247 ==
LOC: ED 22:14 → CC 22:35 → SUATTDRO 23:45 → 1E 23:45 → 2S 01-30 16:32
DX: Z83.3 Family history of diabetes mellitus; I10 Essential (primary) hypertension; I25.5 Ischemic cardiomyopathy; I21.02 ST elevation (STEMI) myocardial infarction involving left anterior descending coronary artery; F17.200 Nicotine dependence, unspecified, uncomplicated; I25.10 Atherosclerotic heart disease of native coronary artery without angina pectoris; E11.65 Type 2 diabetes mellitus with hyperglycemia; E78.5 Hyperlipidemia, unspecified; E11.51 Type 2 diabetes mellitus with diabetic peripheral angiopathy without gangrene; Z51.81 Encounter for therapeutic drug level monitoring; Z82.49 Family history of ischemic heart disease and other diseases of the circulatory system

== ENCOUNTER 2020-02-11 03:28 | Inpatient (IN) ==
[2020-02-11] MEDS ORDERED: ONDANSETRON INJ 2 MG/ML 2 ML VIAL IV STA (03:37)
[2020-02-11] MEDS ORDERED: MoRPHine SULFATE 4 MG/ML 1 ML CARP\\VIAL IV STA ×3 (03:37→09:42)
[2020-02-11] MEDS ORDERED: SODIUM CHLORIDE 0.9% 500 ML IV STA (03:37)
--- NOTE | 2020-02-11 03:44 | Emergency Department Note ---
History of Present Illness General Chief complaint: Kidney Stone Stated complaint: KIDNEY STONE History of Present Illness Maximum Pain Intensity: 7 This 54-year-old presents to the ER complaining of flank pain Location: Left flank Quality: Achy Severity: Moderate Duration: Past 2 days Timing: Started 2 days ago Context: Pain got worse and patient came in Modifying factors: better with nothing; worse with activity Patient states that oxycodone is not helping. He also has been nauseous and vomiting. He does not have a urologist. Patient denies chest pain, dyspnea, fevers, flulike illness. Home Medications Home Medications Medication Instructions Recorded Confirmed Type aspirin [Ecotrin Low Strength] 81 mg PO QAM #30 tab 01/31/19 02/11/20 Rx metoprolol succinate 100 mg PO HS #30 tab 01/31/19 02/11/20 Rx atorvastatin 80 mg tablet 80 mg PO HS #90 tab 08/24/19 02/11/20 Rx lisinopril 20 mg tablet 20 mg PO QAM #90 tab 08/24/19 02/11/20 Rx metformin 500 mg tablet,extended 500 mg PO BID #60 tab 09/02/19 02/11/20 Rx release 24 hr ondansetron 4 mg PO Q8H PRN #14 tab 02/09/20 02/11/20 Rx oxycodone 5 mg PO Q6H PRN #12 tab 02/09/20 02/11/20 Rx tamsulosin [Flomax] 0.4 mg PO HS #7 cap 02/09/20 02/11/20 Rx Allergies Allergy/AdvReac Type Severity Reaction Status Date / Time No Known Drug Allergies Allergy Verified 02/09/20 10:07 Past Med/Surg History Medical History CAD (coronary artery disease) Anterior STEMI 01/29/19 s/p cath with KIERRA to LAD Chlamydia (Acute) Diabetes mellitus, type 2 (Acute) Elevated blood protein (Acute) Hyperlipidemia (Acute) Hyperlipidemia (Chronic) Leukocytosis (Acute) ST elevation myocardial infarction (STEMI) of anterior wall (Acute) 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) Surgical History History of cardiac cath (Acute) s/p STEMI; s/p PCI TO mLAD S/P cardiac cath Family History Father Coronary heart disease Other Diabetes Hypertension Social History Preferred Language: Niuean Communication Ability: Effective Security Consultant Required: No Beliefs That Will Affect Care: None Current Living Situation: Alone current occupation: [employer]; [employer] [facility] Feels Safe at Home: Yes Smoking Status: Never smoker Second Hand Exposure: No ; Hx Alcohol Use: No Hx Substance Use: No Review of Systems A total of 10 systems reviewed and were otherwise negative Physical Exam Vital Signs Vital Signs - 24 hr 02/11/20 03:33 02/11/20 03:57 02/11/20 04:47 Temperature 36.7 C Temperature Source Oral Pulse Rate 79 Pulse Rate [Finger] 69 73 Respiratory Rate 18 18 18 Respiratory Effort / Characteristics Non-Labored Non-Labored Spontaneous Non-Labored Spontaneous Respiratory Depth Normal Normal Normal Respiratory Pattern Regular Regular Blood Pressure 124/83 Blood Pressure [Right Arm] 141/87 H 154/96 H Blood Pressure Mean 96 Blood Pressure Mean [Right Arm] 105 115 Blood Pressure Position [Right Arm] Lying Lying Pulse Oximetry 97 97 97 Oxygen Delivery Method Room Air Room Air Sepsis Recent Fever Within 48 Hours No Sepsis Action Taken by Nursing No Action Required VITALS: Vitals are noted on the nurse's note and reviewed by myself. Vital signs stable. GENERAL: White male who appears in pain, in no acute distress, nondiaphoretic, well-developed well-nourished. SKIN: Capillary reflex less than 2 seconds. HEENT: Normocephalic. PERRLA. EOMI. Nares patent. Mucous membranes moist. Neck is supple without nuchal rigidity. HEART: Regular rate and rhythm LUNGS: Clear to auscultation bilaterally without wheezes, rales or rhonchi. No retractions or accessory muscle use. ABDOMEN: Positive bowel sounds x 4. Normal tympanic percussion. Soft, nontender, without masses or organomegaly. Cruz sign negative. No guarding or rebound tenderness. No CVA tenderness MUSCULOSKELETAL: No gross musculoskeletal defects. NEURO: Patient was alert and oriented to person place and time. No focal neurological deficits. Course Administered Medications Discontinued Medications Sodium Chloride (Nss) 500 mls @ 999 mls/hr IV .Q31M STA Stop: 02/11/20 04:07 Last Infusion: 02/11/20 04:27 Dose: 0 mls/hr Documented by: [id number] Admin: 02/11/20 03:56 Dose: 999 mls/hr Documented by: [id number] Morphine Sulfate (Morphine Sulfate) 4 mg IV NOW STA Stop: 02/11/20 03:38 Last Admin: 02/11/20 03:56 Dose: 4 mg Documented by: [id number] Morphine Sulfate (Morphine Sulfate) 4 mg IV NOW STA Stop: 02/11/20 04:43 Last Admin: 02/11/20 04:47 Dose: 4 mg Documented by: [id number] Ondansetron HCl (Zofran) 4 mg IV NOW STA Stop: 02/11/20 03:38 Last Admin: 02/11/20 03:56 Dose: 4 mg Documented by: [id number] Medical Decision Making Medical Records Attestation: I reviewed the patient's medical records. Home Medications Current Medication List: was personally reviewed by me Laboratory Data Attestation: I reviewed the patient's lab results. Result diagrams: 02/11/20 03:45 02/11/20 03:45 Lab Results 02/11/20 02/11/20 02/11/20 Range/Units 03:45 03:45 03:45 WBC 16.66 H (4.8-10.8) K/uL RBC 4.71 (4.7-6.1) M/uL Hgb 14.7 (14.0-18.0) g/dL Hct 42.8 (42-52) % MCV 90.9 (80-100) fL MCH 31.2 (25-34) pg MCHC 34.3 (32-36) g/dL RDW Std Deviation 43.8 (36.4-46.3) fL RDW Coeff of Hazel 13.2 (11.5-14.5) % Plt Count 407 H (130-400) K/uL MPV 9.5 (7.4-10.4) fL Sodium 137 (136-145) mmol/L Potassium 3.8 (3.5-5.1) mmol/L Chloride 107 (98-107) mmol/L Carbon Dioxide 27 (21-32) mmol/L Anion Gap 3.0 (3-11) BUN 13 (7-18) mg/dl Creatinine 1.24 D (0.6-1.4) mg/dl Est Cr Clr Drug Dosing 64.4 ml/min Est GFR ( Amer) 76.4 Est GFR (Non-Af Amer) 66.0 BUN/Creatinine Ratio 10.5 (10-20) Glucose 142 H (70-99) mg/dl Calcium 8.9 (8.5-10.1) mg/dl Urine Color Yellow Urine Appearance Cloudy A (Clear) Urine pH 5.0 (4.5-7.5) Ur Specific [place] 1.027 (1.000-1.030) Urine Protein Trace H (Negative) Urine Glucose (UA) Negative (Negative) Urine Ketones 2+ H (Negative) Urine Blood 3+ H (Negative) Urine Nitrite Negative (Negative) Urine Bilirubin Negative (Negative) Urine Urobilinogen Negative (Negative) Ur Leukocyte Esterase Negative (Negative) Urine WBC (Auto) 1-5 (0-5) /hpf Urine RBC (Auto) >30 H (0-4) /hpf U Hyaline Cast (Auto) 1-5 (0-5) /lpf U Epithel Cells (Auto) 5-10 H (0-5) /lpf Urine Bacteria (Auto) Negative (Negative) Imaging Data Attestation: I personally reviewed and interpreted this imaging study as follows: Blood Pressure Blood Pressure Findings: Normal blood pressure MDM Narrative Prior records/ancillary studies reviewed. Triage Nursing notes reviewed. The patient's history was concerning for left flank pain. Differential diagnosis: Etiologies such as renal colic, appendicitis, diverticulitis, mesenteric ischemia, aortic pathology, infections, inflammatory bowel disease, PUD, biliary pathology, UTI, as well as others were entertained. Physical examination findings: As above. ER treatment provided: Morphine, Zofran, IV fluids On reassessment the patient felt better. Diagnostic interpretation by me: The labs revealed leukocytosis, most likely marginalization from vomiting. Urinalysis revealed There was no sign of UTI. Imaging studies: US RENAL: Comparison to April 06, 2019 CT of the pelvis without contrast. The right kidney measures 11.3 x 5.7 x 5.3 cm, 179 mL with normal renal cortical thickness and echogenicity. No hydronephrosis is seen. There are 5 mm upper pole and 6 mm lower pole focal hyperechogenic foci consistent with calyceal stones. The urinary bladder is nondilated and almost completely decompressed. The left kidney measures 12.8 x 4.7 x 6.2 cm, 196 mL with normal renal cortical thickness and echogenicity. There is slight caliectasis without overt hydronephrosis. There is a focal trace amount of perinephric fluid incidentally noted. The collecting system is more prominent than the comparison CT scan he previously had a lower pole renal calyceal stone. Possible left-sided ureterolithiasis consider CT for further characterization. Radiologist: Dominic Bhatti MD Consultation: A consultation was placed with the hospitalist. The case was discussed and diagnostics were reviewed. The patient was evaluated in the ER for further treatment. It appears that the patient has isolated renal colic from a left sided stone. Pain persisted. Patient did not felt comfortable going home. Medicine was consulted. He will be evaluated for possible admission. By the evaluation outlined above emergent etiologies such as appendicitis, diverticulitis, mesenteric ischemia, aortic pathology, infections, inflammatory bowel disease, PUD, biliary pathology, UTI, as well as others were deemed relatively unlikely. The pt informed about the findings as listed above. All questions were answered and pleased with the treatment. The chart was completed utilizing [employer] Speech voice recognition software. Grammatical errors, random word insertions, pronoun errors, and incomplete sentences are an occassional consequence of this system due to software limitations, ambient noise, and hardware issues. Any formal questions or concerns about the content, text, or information contained within the body of this dictation should be directly addressed to the physician nurse practitioner physicians assistant for clarification. Impression & Plan Left ureteral calculus, Intractable pain Discharge Plan Visit Data Chief Complaint: Kidney Stone Stated Complaint: KIDNEY STONE ED Provider: Debbie Doyle ED Midlevel Provider: Kayleigh Campbell Discharge Problem: Left ureteral calculus, Intractable pain Patient Disposition: Being Evaluated by Hospitalist Condition: Good Forms Stand Alone Forms: My Klique Prescriptions Prescriptions: No Action atorvastatin 80 mg tablet 80 mg PO HS Qty: 90 RF: 3 lisinopril 20 mg tablet 20 mg PO QAM Qty: 90 RF: 3 metformin 500 mg tablet extended release 24 hr 500 mg PO BID Qty: 60 RF: 5 aspirin [Ecotrin Low Strength] 81 mg Tablet,Delayed Release (Dr/Ec) 81 mg PO QAM Qty: 30 RF: 0 metoprolol succinate 100 mg tablet extended release 24 hr 100 mg PO HS Qty: 30 RF: 0 tamsulosin [Flomax] 0.4 mg capsule 0.4 mg PO HS Qty: 7 RF: 0 ondansetron 4 mg tablet,disintegrating 4 mg PO Q8H PRN (Reason: nausea and vomiting) Qty: 14 RF: 0 oxycodone 5 mg tablet 5 mg PO Q6H PRN (Reason: pain) Qty: 12 RF: 0 Referrals Referrals: Anthony Chapman III, MD [Primary Care Provider] -
[2020-02-11 03:55] LABS: Hematocrit (blood only) 42.8 % (42-52); Hemoglobin 14.7 g/dL (14.0-18.0); Mean Corpuscular Hemoglobin 31.2 pg (25-34); Mean Corpuscular Hgb Conc 34.3 g/dL (32-36); Mean Corpuscular Volume 90.9 fL (80-100); Mean Platelet Volume 9.5 fL (7.4-10.4); Platelet Count 407 K/uL (130-400); RDW Coefficient of Variation 13.2 % (11.5-14.5); RDW Standard Deviation 43.8 fL (36.4-46.3); Red Blood Count 4.71 M/uL (4.7-6.1); White Blood Count 16.66 K/uL (4.8-10.8)
[2020-02-11 03:59] LABS: Appearance Urine Cloudy (Clear); Bacteria Urine Automated Negative (Negative); Bilirubin Urine Negative (Negative); Blood Urine 3+ (Negative); Color Urine Yellow; Glucose Urine UA Negative (Negative); Ketones Urine 2+ (Negative); Leukocyte Esterase Urine Negative (Negative); Nitrite Urine Negative (Negative); Protein Urine Trace (Negative); RBC Urine Automated >30 /hpf (0-4); Specific Gravity Urine 1.027 (1.000-1.030); Urobilinogen Urine Negative (Negative)
[2020-02-11 04:24] LABS: BUN Creatinine Ratio 10.5 (10-20); Calcium 8.9 mg/dl (8.5-10.1); Creatinine Clr Calc Pharmacy 64.4 ml/min; Est GFR (African American) 76.4; Potassium 3.8 mmol/L (3.5-5.1)
--- NOTE | 2020-02-11 06:02 | History & Physical Report ---
Date of Service February 11, 2020 Assessment & Plan (1) Left ureteral calculus: 4 mm distal left ureteral calculus with mild left hydronephrosis- N.p.o. Acetaminophen 1 g IV every 8 hours PRN mild pain or temperature Dilaudid 0.2 mg IV every 3 hours as needed severe pain Ceftriaxone 1 g IV daily Zofran 4 mg IV every 6 hours PRN Continue tamsulosin 0.4 mg at bedtime Follow urine culture and sensitivity Consult urology Present on Admission?: Yes (2) Hydronephrosis due to obstruction of ureter: See above Present on Admission?: Yes (3) Hyperlipidemia: Hold atorvastatin Present on Admission?: Yes (4) Diabetes type 2 with atherosclerosis of arteries of extremities: Placed on Accu-Cheks before meals and at bedtime/every 6 hours with NovoLog coverage per scale Hold metformin Present on Admission?: Yes (5) CAD (coronary artery disease): CAD/hypertension- Hold aspirin 81 mg daily, lisinopril 20 mg daily. Continue metoprolol succinate 100 mg p.o. at bedtime. Present on Admission?: Yes History of Present Illness Chief Complaint: The patient presents to the emergency department with persistence of left flank pain, worsening over the past 2 days. Primary Care Provider: Anthony Chapman MD The patient is a 54-year-old male with a past medical history including hyperlipidemia, STEMI, diabetes mellitus type 2, peripheral arterial disease, and Chlamydia, who presented to the emergency department 2 evenings ago with left flank pain was diagnosed with a left 4 mm ureteral calculus with mild hydronephrosis. He was discharged to home, reports that his pain has worsened since that time, presented back to the ED for reassessment tonight, and was referred for evaluation for admission. He reports having had one kidney stone in the past, that was able to be passed on its own without intervention. Allergies Allergy/AdvReac Type Severity Reaction Status Date / Time No Known Drug Allergies Allergy Verified 02/09/20 10:07 Home Medications Home Medications Medication Instructions Recorded Confirmed Type aspirin [Ecotrin Low Strength] 81 mg PO QAM #30 tab 01/31/19 02/11/20 Rx metoprolol succinate 100 mg PO HS #30 tab 01/31/19 02/11/20 Rx atorvastatin 80 mg tablet 80 mg PO HS #90 tab 08/24/19 02/11/20 Rx lisinopril 20 mg tablet 20 mg PO QAM #90 tab 08/24/19 02/11/20 Rx metformin 500 mg tablet,extended 500 mg PO BID #60 tab 09/02/19 02/11/20 Rx release 24 hr ondansetron 4 mg PO Q8H PRN #14 tab 02/09/20 02/11/20 Rx oxycodone 5 mg PO Q6H PRN #12 tab 02/09/20 02/11/20 Rx tamsulosin [Flomax] 0.4 mg PO HS #7 cap 02/09/20 02/11/20 Rx Past Med/Surg History Medical History CAD (coronary artery disease) Anterior STEMI 01/29/19 s/p cath with KIERRA to LAD Chlamydia (Acute) Diabetes mellitus, type 2 (Acute) Elevated blood protein (Acute) Hyperlipidemia (Acute) Hyperlipidemia (Chronic) Leukocytosis (Acute) ST elevation myocardial infarction (STEMI) of anterior wall (Acute) 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) Surgical History History of cardiac cath (Acute) s/p STEMI; s/p PCI TO mLAD S/P cardiac cath Family History Father Coronary heart disease Other Diabetes Hypertension Social History Preferred Language: Frisian Communication Ability: Effective Glass Sander Belt Required: No Beliefs That Will Affect Care: None Current Living Situation: Alone current occupation: [employer]; [employer] residences Feels Safe at Home: Yes Smoking Status: Never smoker Second Hand Exposure: No ; Hx Alcohol Use: No Hx Substance Use: No Review of Systems Review of Systems: The patient denies chest pain, palpitations, shortness of breath, dyspnea on exertion, cough, lower extremity swelling, sore throat, fevers, chills, sweats, atigue, nausea, vomiting, diarrhea , constipation, blood in stool, lightheadedness, dizziness, headache, memory loss, loss of consciousness, rash, abnormal bruising or bleeding, imbalance, focal or generalized weakness, numbness or tingling in arms or legs, generalized arthralgias or myalgias, back or neck pain, or night sweats. The review of systems is otherwise negative other than for that already noted above, and at least 10 systems have been reviewed. Physical Exam Physical Exam: The patient is awake, alert and oriented 3, well developed and well nourished, normocephalic and atraumatic, lying in bed and in no acute distress. HEENT--PERRL, EOMI, mucous membranes and oropharynx normal. Neck--supple. No JVD. No bruits. Thyroid normal, trachea midline, no adenopathy. Heart--normal S1 and S2. No murmurs, rubs or gallops. Lungs--clear bilaterally, no respiratory distress, no accessory muscle use. Abdomen--normal bowel sounds and soft. Nontender. Nondistended. Extremities--no cyanosis or clubbing. No edema. There are good distal pulses b/l. Dermatologic--normal skin turgor, normal color, no abnormal lymph nodes, no rash. Neurologic--cranial nerves II through XII grossly intact. Rheumatologic--normal range of motion. Psychiatric--normal affect. Results & Data Results & Data ([facility]) Vital Signs (Past 12 Hours) Vital Signs Temp Pulse Pulse Resp BP BP Pulse Ox 02/11/20 05:45 67 18 133/89 97 02/11/20 04:47 73 18 154/96 H 97 02/11/20 03:57 69 18 141/87 H 97 02/11/20 03:33 98.1 F 79 18 124/83 97 Laboratory Results Laboratory Results WBC 16.66 K/uL (4.8-10.8) H 02/11/20 03:45 RBC 4.71 M/uL (4.7-6.1) 02/11/20 03:45 Hgb 14.7 g/dL (14.0-18.0) 02/11/20 03:45 Hct 42.8 % (42-52) 02/11/20 03:45 MCV 90.9 fL (80-100) 02/11/20 03:45 MCH 31.2 pg (25-34) 02/11/20 03:45 MCHC 34.3 g/dL (32-36) 02/11/20 03:45 RDW Std Deviation 43.8 fL (36.4-46.3) 02/11/20 03:45 RDW Coeff of Hazel 13.2 % (11.5-14.5) 02/11/20 03:45 Plt Count 407 K/uL (130-400) H 02/11/20 03:45 MPV 9.5 fL (7.4-10.4) 02/11/20 03:45 Sodium 137 mmol/L (136-145) 02/11/20 03:45 Potassium 3.8 mmol/L (3.5-5.1) 02/11/20 03:45 Chloride 107 mmol/L (98-107) 02/11/20 03:45 Carbon Dioxide 27 mmol/L (21-32) 02/11/20 03:45 Anion Gap 3.0 (3-11) 02/11/20 03:45 BUN 13 mg/dl (7-18) 02/11/20 03:45 Creatinine 1.24 mg/dl (0.6-1.4) D 02/11/20 03:45 Est Cr Clr Drug Dosing 64.4 ml/min 02/11/20 03:45 Est GFR ( Amer) 76.4 02/11/20 03:45 Est GFR (Non-Af Amer) 66.0 02/11/20 03:45 BUN/Creatinine Ratio 10.5 (10-20) 02/11/20 03:45 Glucose 142 mg/dl (70-99) H 02/11/20 03:45 Calcium 8.9 mg/dl (8.5-10.1) 02/11/20 03:45 Urine Color Yellow 02/11/20 03:45 Urine Appearance Cloudy (Clear) A 02/11/20 03:45 Urine pH 5.0 (4.5-7.5) 02/11/20 03:45 Ur Specific [place] 1.027 (1.000-1.030) 02/11/20 03:45 Urine Protein Trace (Negative) H 02/11/20 03:45 Urine Glucose (UA) Negative (Negative) 02/11/20 03:45 Urine Ketones 2+ (Negative) H 02/11/20 03:45 Urine Blood 3+ (Negative) H 02/11/20 03:45 Urine Nitrite Negative (Negative) 02/11/20 03:45 Urine Bilirubin Negative (Negative) 02/11/20 03:45 Urine Urobilinogen Negative (Negative) 02/11/20 03:45 Ur Leukocyte Esterase Negative (Negative) 02/11/20 03:45 Urine WBC (Auto) 1-5 /hpf (0-5) 02/11/20 03:45 Urine RBC (Auto) >30 /hpf (0-4) H 02/11/20 03:45 U Hyaline Cast (Auto) 1-5 /lpf (0-5) 02/11/20 03:45 U Epithel Cells (Auto) 5-10 /lpf (0-5) H 02/11/20 03:45 Urine Bacteria (Auto) Negative (Negative) 02/11/20 03:45 Code Status & VTE Plan Code Status Full code VTE Prophylaxis Plan VTE Prophylaxis will be ordered: Yes PG Care Time/CCT Total # of Minutes Spent Total Time Spent with Patient: Total time spent is greater than 50% in coordination of care (as documented) at patient's floor/unit and/or counseling patient: Coding Level of Care Code 39913 Initial Inpt Care Lvl 3 Diagnoses Left ureteral calculus N20.1 Hydronephrosis due to obstruction of ureter N13.2 Hyperlipidemia E78.5 Diabetes type 2 with atherosclerosis of arteries of extremities E11.51; I70.209 CAD (coronary artery disease) I25.10
[2020-02-11] MEDS ORDERED: HYDROmorphone INJ 0.5 MG/0.5 ML SYR IV PRN ×2 (07:02→11:37)
[2020-02-11] MEDS ORDERED: SODIUM CHLORIDE 0.9% 1000ML 1,000 ML IV SCH (07:15)
[2020-02-11] MEDS ORDERED: ACETAMINOPHEN 1000 MG/100 ML IV IV PRN (07:15)
[2020-02-11] MEDS ORDERED: ONDANSETRON INJ 2 MG/ML 2 ML VIAL IV PRN ×2 (07:15→10:19)
--- NOTE | 2020-02-11 07:15 | Ultrasound Report ---
US renal/blad retro comp CLINICAL HISTORY: 54 years-old Male presenting with flank pain, known stone. TECHNIQUE: Real-time grayscale and limited color Doppler ultrasound imaging of the kidneys and bladde r was performed. COMPARISON: Correlation made with CT from 02/09/2020. FINDINGS: Right kidney: Normal echogenicity with preserved corticomedullary differentiation. Normal cortical th ickness. Right kidney measures 11.3 cm. No hydronephrosis. Hyperechogenic foci at the upper and lower pole with posterior shadowing and twinkling artifact consistent with renal calculi as seen on CT. Left kidney: Normal echogenicity with preserved corticomedullary differentiation. Normal cortical thi ckness. Left kidney measures 12.8 cm. Mild pelvocaliectasis. There may be blunting of the calyces. Tr james perinephric fluid. The proximal left ureter is dilated with an AP diameter of 4 mm. Bladder: Underdistended limiting evaluation but grossly normal. Bilateral ureteral jets not visualize d. Other: None. IMPRESSION: 1. Right nephrolithiasis. Punctate left renal calculi evident on recent CT not well demonstrated. 2. Mild left hydronephrosis similar to prior CT. Presumably the distal left ureteral calculus may re main in place. ACT 112: Negative or not required by law. Electronically signed by: Jay Pacheco M.D. 02/11/2020 7:13 AM
[2020-02-11] MEDS: NSS + 20MEQ KCL 20 MEQ/1,000 ML BAG IV SCH ×2 (07:46→14:35)
[2020-02-11] MEDS: cefTRIAXone SODIUM 1,000 MG in DEXTROSE 5% 50 ML IV SCH (07:49)
[2020-02-11 08:36] LABS: Eosinophils # (auto) 0.04 K/uL (0-0.5); Eosinophils % (auto) 0.2 %; Immature Granulocytes # (auto) 0.06 K/uL (0.00-0.02); Immature Granulocytes % (auto) 0.3 %; Lymphocytes # (auto) 1.71 K/uL (1.2-3.4); Lymphocytes % (auto) 9.8 %; Monocytes # (auto) 1.29 K/uL (0.11-0.59); Monocytes % (auto) 7.4 %; Neutrophils # (auto) 14.32 K/uL (1.4-6.5); Neutrophils % (auto) 82.3 %
--- NOTE | 2020-02-11 08:59 | Urology Consultation ---
Date of Consultation February 11, 2020 Assessment & Plan (1) Left ureteral calculus: (2) Hydronephrosis due to obstruction of ureter: (3) Intractable pain: 54yo M, admitted on 02/11/20 with intractable left flank pain with associated nausea and vomiting in the context of a 4mm obstructing left distal ureteral stone with mild left hydronephrosis. -Case discussed with Dr. Lind -Strain all urine. -Remain NPO for procedure today Findings reviewed with Dr. Lind. Given his intractable left flank pain with associated nausea and vomiting in the context of an obstructing 4mm left distal ureteral stone, will proceed with OR for cystoscopy, Left retrograde pyelogram and Left stent placement, possible ureteroscopy, laser lithotripsy, stone basketing, possible ureteral dilation depending on findings. Risks and benefits to be reviewed with patient by Dr. Lind. OR notified. Preoperative CXR and EKG ordered. Currently covered with IV Ceftriaxone. History of Present Illness Reason for Consultation: Left ureteral stone with hydronephrosis Attending Physician: Pj Hernadez History of Present Illness The patient is a 54-year-old male with a past medical history including hyperlipidemia, STEMI, diabetes mellitus type 2, peripheral arterial disease, admitted 02/11/20 with 2 day history of left flank pain with associated nausea and vomiting. Patient was seen and evaluated at [facility] ER on 02/09/20 with similar complaints and diagnosed with 4mm obstructing distal left ureteral stone. At that time, he was discharged with recommendations of MET. Patient reports his pain was intolerable last night so he returned to the ER for evaluation. Patient has not followed with urology in the past. Patient has a known history of kidney stone x 1 with spontaneous passage. No family history of stones. Chart Review: Afebrile WBC (02/10): 16.66 HgB (02/10): 14.7 Hct (02/10): 42.8 Cr (02/10): 1.24 UA (02/10): >30RBC, +3blood, neg leuks, neg bacteria, neg wbc No UC&S in chart CT Abd/Pelvis w/o contrast (02/08): IMPRESSION: 1. A 4 mm obstructing stone within the distal left ureter resulting in mild left hydronephrosis. 2. Bilateral nephrolithiasis. 3. No definite bowel wall thickening or obstruction. 4. Normal appendix. 5. 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 CAT[place] (02/10): IMPRESSION: 1. Right nephrolithiasis. Punctate left renal calculi evident on recent CT not well demonstrated. 2. Mild left hydronephrosis similar to prior CT. Presumably the distal left ureteral calculus may remain in place Patient alert, awake, and non-toxic appearing. Denies fevers and chills. Nausea and vomiting has resolved since last evening. Patient denies gross hematuria, dysuria today. Patient stated that he noticed blood in his urine 2 days ago but it has since resolved. Patient reports left back/flank pain. Denies abdominal or suprapubic pain. Patient is currently getting IV ceftriaxone and Dilaudid and Tylenol PRN for pain. Patient states he has been NPO with only sips of water. Discussed with patient options for stone management including MET over next 24 hours or URS LL with stent placement today. Patient wishes to proceed with URS LL with stent placement. Allergies Allergy/AdvReac Type Severity Reaction Status Date / Time No Known Drug Allergies Allergy Verified 02/09/20 10:07 Home Medications Home Medications Medication Instructions Recorded Confirmed Type aspirin [Ecotrin Low Strength] 81 mg PO QAM #30 tab 01/31/19 02/11/20 Rx metoprolol succinate 100 mg PO HS #30 tab 01/31/19 02/11/20 Rx atorvastatin 80 mg tablet 80 mg PO HS #90 tab 08/24/19 02/11/20 Rx lisinopril 20 mg tablet 20 mg PO QAM #90 tab 08/24/19 02/11/20 Rx metformin 500 mg tablet,extended 500 mg PO BID #60 tab 09/02/19 02/11/20 Rx release 24 hr ondansetron 4 mg PO Q8H PRN #14 tab 02/09/20 02/11/20 Rx oxycodone 5 mg PO Q6H PRN #12 tab 02/09/20 02/11/20 Rx tamsulosin [Flomax] 0.4 mg PO HS #7 cap 02/09/20 02/11/20 Rx Patient History Medical History CAD (coronary artery disease) Anterior STEMI 01/29/19 s/p cath with KIERRA to LAD Chlamydia (Acute) Diabetes mellitus, type 2 (Acute) Elevated blood protein (Acute) Hyperlipidemia (Acute) Hyperlipidemia (Chronic) Leukocytosis (Acute) ST elevation myocardial infarction (STEMI) of anterior wall (Acute) 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) Surgical History History of cardiac cath (Acute) s/p STEMI; s/p PCI TO mLAD S/P cardiac cath Family History Father Coronary heart disease Other Diabetes Hypertension Social History Preferred Language: Thai Communication Ability: Effective Language Pathologist Required: No Beliefs That Will Affect Care: None Current Living Situation: Alone current occupation: [employer]; [employer] Other Information That Helps Us Care for You: No Feels Safe at Home: Yes Safety Concerns: Feels Safe At This Time Smoking Status: Never smoker Second Hand Exposure: No ; Hx Alcohol Use: Yes Alcohol type: hard liquor Hx Substance Use: No Review of Systems Constitutional: as per Subjective / HPI Gastrointestinal: as per Subjective / HPI Genitourinary: + as per Subjective / HPI Hematologic / Lymphatic: as per Subjective / HPI Physical Exam Constitutional: well developed and well nourished; no acute distress and not ill appearing ENMT: Ears: no hearing impairment Neck: trachea midline; no anterior neck swelling Respiratory: normal respiratory effort; no respiratory distress, no labored breathing and does not use accessory muscles Gastrointestinal (Abdomen): Inspection/Auscultation: abdomen normal to inspection Percussion/Palpation: abdomen soft; abdomen nontender and no guarding Musculoskeletal: Head/Neck/Chest: normocephalic and neck supple Skin: + wound; no rashes, no lesions and no erythema to exposed skin areas Neurologic: moves all extremities Psychiatric: Orientation: alert, oriented x 3 and cooperative Eye Contact: good eye contact Genitourinary: + CVA tenderness (left) Results & Data Vital Signs (Past 12 Hours) Vital Signs Temp Pulse Pulse Resp BP BP BP 02/11/20 06:45 37.0 C 75 16 145/86 H 02/11/20 05:45 67 18 133/89 02/11/20 04:47 73 18 154/96 H 02/11/20 03:57 69 18 141/87 H 02/11/20 03:33 36.7 C 79 18 124/83 Pulse Ox 02/11/20 06:45 98 02/11/20 05:45 97 02/11/20 04:47 97 02/11/20 03:57 97 02/11/20 03:33 97 PG Care Time/CCT Total # of Minutes Spent Total Time Spent with Patient: Total time spent is greater than 50% in coordination of care (as documented) at patient's floor/unit and/or counseling patient: Coding Level of Care Code 14787 Inpt Consult Level 4 Diagnoses Left ureteral calculus N20.1 Hydronephrosis due to obstruction of ureter N13.2 Intractable pain R52
[2020-02-11] MEDS ORDERED: fentaNYL citrate 100 MCG/2 ML VIAL IV PRN (10:19)
[2020-02-11] MEDS ORDERED: ePHEDrine sulfate 50 MG/ML AMP IV PRN (10:19)
[2020-02-11] MEDS ORDERED: LABETALOL HCL IV 5 MG/ML 20ML IV PRN (10:19)
[2020-02-11] MEDS ORDERED: ATROPINE SULFATE 0.1 MG/ML 10ML SYR IV PRN (10:19)
[2020-02-11] MEDS ORDERED: MEPERIDINE HCL 25 MG/ML CARP/VIAL IV PRN (10:19)
[2020-02-11] MEDS ORDERED: PHENYLEPHRINE 100MCG/ML 5ML SYR IV PRN (10:19)
[2020-02-11] MEDS ORDERED: HYDROmorphone INJ 1 MG/ML SYRINGE IV PRN (10:19)
--- NOTE | 2020-02-11 10:46 | Anesthesiology Consultation ---
Date of Service February 11, 2020 Assessment & Plan (1) Encounter for pre-operative examination: Chart Review Chart Review: Acceptable Risk for Surgery and Patient NOT seen in Pre Admission Testing Consults Requested none medicine is following History Surgery Operation Date: 02/11/20 12:20 Proposed Procedures p Cystoscopy, Left Retrograde Pyelogram, Left Stent Placement, Possible Left Ureteroscopy, Possible Laser Lithotripsy - Gregory Lind MD Height/Weight Height: 5 ft 7 in Weight: 71.4 kg Allergies Allergy/AdvReac Type Severity Reaction Status Date / Time No Known Drug Allergies Allergy Verified 02/09/20 10:07 Medications Home Medications Medication Instructions Recorded Confirmed Last Taken aspirin [Ecotrin Low Strength] 81 mg PO QAM #30 tab 01/31/19 02/11/20 02/09/20 metoprolol succinate 100 mg PO HS #30 tab 01/31/19 02/11/20 02/09/20 atorvastatin 80 mg tablet 80 mg PO HS #90 tab 08/24/19 02/11/20 02/09/20 lisinopril 20 mg tablet 20 mg PO QAM #90 tab 08/24/19 02/11/20 02/09/20 metformin 500 mg tablet,extended 500 mg PO BID #60 tab 09/02/19 02/11/20 02/09/20 release 24 hr ondansetron 4 mg PO Q8H PRN #14 tab 02/09/20 02/11/20 02/09/20 oxycodone 5 mg PO Q6H PRN #12 tab 02/09/20 02/11/20 02/09/20 tamsulosin [Flomax] 0.4 mg PO HS #7 cap 02/09/20 02/11/20 02/09/20 Active Medications Generic Name Dose Route Start Last Admin Trade Name Freq PRN Reason Stop Dose Admin Hydromorphone HCl 0.2 mg 02/11/20 07:02 02/11/20 07:44 Dilaudid IV 02/25/20 07:01 0.2 mg Q3H PRN Administration Severe Pain Ceftriaxone Sodium 1,000 mg/ 60 mls @ 100 mls/hr 02/11/20 08:00 02/11/20 08:39 Dextrose IV 02/21/20 07:59 Infused Q24H ISMAEL Infusion Protocol Potassium Chloride/Sodium Chloride 20 meq in 1,000 mls @ 100 mls/hr 02/11/20 07:30 02/11/20 10:46 Normal Saline W/20 Meq Kcl IV 03/12/20 07:29 0 mls/hr .Q10H ISMAEL Titration NPO Date Last Intake of Fluids: 02/09/20 Date Last Intake of Solids: 02/09/20 Past Medical History Medical History CAD (coronary artery disease) Anterior STEMI 01/29/19 s/p cath with KIERRA to LAD Chlamydia (Acute) Diabetes mellitus, type 2 (Acute) Elevated blood protein (Acute) Hyperlipidemia (Acute) Hyperlipidemia (Chronic) Leukocytosis (Acute) ST elevation myocardial infarction (STEMI) of anterior wall (Acute) 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) Past Family History Family History Father Coronary heart disease Other Diabetes Hypertension Past Surgical History Surgical History History of cardiac cath (Acute) s/p STEMI; s/p PCI TO mLAD S/P cardiac cath Social History Smoking Status: Never smoker Hx Alcohol Use: Yes Alcohol type: hard liquor alcohol intake frequency: holidays/special occasions only Hx Substance Use: No Physical Exam Vital Signs Last Vital Signs Temp 37 C 02/11/20 08:57 Pulse 74 02/11/20 08:57 Resp 18 02/11/20 08:57 BP 145/86 H 02/11/20 08:57 Pulse Ox 98 02/11/20 08:57 Testing Laboratory Results 02/11/20 03:45 02/11/20 03:45 Urine Color Yellow 02/11/20 03:45 Urine Appearance Cloudy (Clear) A 02/11/20 03:45 Urine pH 5.0 (4.5-7.5) 02/11/20 03:45 Ur Specific [place] 1.027 (1.000-1.030) 02/11/20 03:45 Urine Protein Trace (Negative) H 02/11/20 03:45 Urine Glucose (UA) Negative (Negative) 02/11/20 03:45 Urine Ketones 2+ (Negative) H 02/11/20 03:45 Urine Nitrite Negative (Negative) 02/11/20 03:45 Ur Leukocyte Esterase Negative (Negative) 02/11/20 03:45 Urine WBC (Auto) 1-5 /hpf (0-5) 02/11/20 03:45 Urine RBC (Auto) >30 /hpf (0-4) H 02/11/20 03:45 U Hyaline Cast (Auto) 1-5 /lpf (0-5) 02/11/20 03:45 U Epithel Cells (Auto) 5-10 /lpf (0-5) H 02/11/20 03:45 Urine Bacteria (Auto) Negative (Negative) 02/11/20 03:45 Electrocardiogram Date: 02/11/20 Findings: + NSR @ (87)
--- NOTE | 2020-02-11 11:03 | XRay Report ---
XR chest 2V PA/lateral CLINICAL HISTORY: 54 years-old Male presenting with pre op. TECHNIQUE: PA and lateral views of the chest were obtained. COMPARISON: 01/29/2019. FINDINGS: Cardiomediastinal silhouette normal apart from the presence of a coronary artery stents. Minimal left basilar opacities. No pleural effusion or pneumothorax. Osseous structures normal. Upper abdomen nor mal. IMPRESSION: 1. Minimal left basilar opacities likely atelectasis or scarring. No convincing evidence of acute ca rdiopulmonary disease. ACT 112: Negative or not required by law. Electronically signed by: Jay Pacheco M.D. 02/11/2020 11:02 AM
[2020-02-11] MEDS ORDERED: MIDAZOLAM HCL 1 MG/ML 2ML VIAL ONE (11:16)
[2020-02-11] MEDS ORDERED: fentaNYL citrate 100 MCG/2 ML VIAL ONE (11:16)
[2020-02-11] MEDS ORDERED: DEXAMETHASONE SOD INJ 4 MG/ML VIAL ONE (11:16)
[2020-02-11] MEDS ORDERED: PROPOFOL IV EMULSION 10 MG/ML 20 ML VIAL IV ONE (11:16)
[2020-02-11] MEDS ORDERED: ONDANSETRON INJ 2 MG/ML 2 ML VIAL ONE (11:16)
[2020-02-11] MEDS ORDERED: LIDOCAINE HCL 2% 2 ML VIAL/AMP(20MG/ML) INFIL ONE (11:16)
--- NOTE | 2020-02-11 11:38 | History & Physical Bridge Note ---
Date of Service February 11, 2020 History & Physical Bridge Note I have examined the patient, reviewed the History & Physical and in the interval since the performance of the History & Physical I have noted the following changes of clinical significance: no changes noted
--- NOTE | 2020-02-11 12:14 | Hospitalist Progress Note ---
Date of Service February 11, 2020 Assessment & Plan (1) Left ureteral calculus: * 4 mm distal left ureteral calculus with mild left hydronephrosis. Cr bumped to 1.24 from 0.84 on 02/08. WBC 16.6k * UA with 2+ ketones, 3+ blood, >30RBC * Urology consulted -- appreciate assistance * Dilaudid increased to 0.5mg IV prn severe pain. Given additional morphine 4mg IV x 1 this morning (02/10) * Zofran 4mg IV prn nausea * Continue tamsulosin 0.4mg qHS * Continue ceftriaxone * NPO for OR this afternoon with Dr. Lind * IVF -- NSS + 20meq KCl @ 100ml/hr * Labs in AM (2) ALBER (acute kidney injury): * See above. Secondary to obstructing stone (3) Hydronephrosis due to obstruction of ureter: * See above (4) Hyperlipidemia: * Chronic. Stable * Hold atorvastatin as patient NPO (5) Diabetes type 2 with atherosclerosis of arteries of extremities: * Placed on Accu-Cheks before meals and at bedtime/every 6 hours with NovoLog coverage per scale * Hold metformin (6) CAD (coronary artery disease): * S/p PCI to LAD January 2019. Had previously been on DAPT for 1 year, to be completed earlier this month (01/30/20) * ASA 81mg on hold * Continue BB once no longer NPO (7) Hypertension: * Chronic. Stable. BP currently 133/78 * Lisinopril 20mg on hold for procedure and ALBER-- likely to be resumed tomorrow * Continue metoprolol 100mg at bedtime once no longer NPO and BP tolerates (8) DVT prophylaxis: * ASA on hold for procedure * Encourage ambulation * SCDs Dispo: OR this afternoon. Likely discharge Saturday pending labs/improvement of symptoms Admission and Anticipated Discharge Date Admission Date: February 11, 2020 Subjective BRIDGE NOTE: Patient evaluated this morning. Continues to have left sided flank/back pain without radiation. Worsened by movement. Stated 8-9/10 on pain scale with minimum improvement with the 0.2mg dilaudid. Denies fever or chills, chest pain, shortness of breath, diarrhea/constipation or dysuria at this time. Plan for NPO and to proceed to OR today for stent placement and possible lithotripsy with Dr. Lind but he states there are two people ahead of him yet. All questions/concerns addressed. Review of Systems Review of Systems: All systems reviewed & are unremarkable except as noted in HPI & below Physical Exam Constitutional: well developed and well nourished; no acute distress and + uncomfortable Eyes: + anicteric sclerae and PERRL Neck: trachea midline, no thyromegaly Respiratory: normal respiratory effort, lungs clear to auscultation Cardiovascular: RRR, no murmur, no edema Psychiatric: A+Ox3, euthymic affect Genitourinary: + CVA tenderness (left sided) Results & Data Results & Data ([facility]) Vital Signs (Past 12 Hours) Vital Signs Temp Pulse Pulse Resp BP BP BP 02/11/20 11:03 37.1 C 87 18 133/78 02/11/20 08:57 37 C 74 18 145/86 H 02/11/20 06:45 37.0 C 75 16 145/86 H 02/11/20 05:45 67 18 133/89 02/11/20 04:47 73 18 154/96 H 02/11/20 03:57 69 18 141/87 H 02/11/20 03:33 36.7 C 79 18 124/83 Pulse Ox 02/11/20 11:03 91 02/11/20 08:57 98 02/11/20 06:45 98 02/11/20 05:45 97 02/11/20 04:47 97 02/11/20 03:57 97 02/11/20 03:33 97 Laboratory Results 02/11/20 02/11/20 02/11/20 Range/Units 11:04 03:45 03:45 WBC (4.8-10.8) K/uL RBC (4.7-6.1) M/uL Hgb (14.0-18.0) g/dL Hct (42-52) % MCV (80-100) fL MCH (25-34) pg MCHC (32-36) g/dL RDW Std Deviation (36.4-46.3) fL RDW Coeff of Hazel (11.5-14.5) % Plt Count (130-400) K/uL MPV (7.4-10.4) fL Immature Gran % (Auto) % Neut % (Auto) % Lymph % (Auto) % [place]ver[place] % (Auto) % Eos % (Auto) % Baso % (Auto) % Immature Gran # (Auto) (0.00-0.02) K/uL Neut # (Auto) (1.4-6.5) K/uL Lymph # (Auto) (1.2-3.4) K/uL [place] # (Auto) (0.11-0.59) K/uL Eos # (Auto) (0-0.5) K/uL Baso # (Auto) (0-0.2) K/uL Absolute Nucleated RBC (0-0) K/uL Nucleated RBC % (auto) % Sodium 137 (136-145) mmol/L Potassium 3.8 (3.5-5.1) mmol/L Chloride 107 (98-107) mmol/L Carbon Dioxide 27 (21-32) mmol/L Anion Gap 3.0 (3-11) BUN 13 (7-18) mg/dl Creatinine 1.24 D (0.6-1.4) mg/dl Est Cr Clr Drug Dosing 64.4 ml/min Est GFR ( Amer) 76.4 Est GFR (Non-Af Amer) 66.0 BUN/Creatinine Ratio 10.5 (10-20) Glucose 142 H (70-99) mg/dl POC Glucose 114 H (70-99) mg/dl Calcium 8.9 (8.5-10.1) mg/dl Urine Color Yellow Urine Appearance Cloudy A (Clear) Urine pH 5.0 (4.5-7.5) Ur Specific [place] 1.027 (1.000-1.030) Urine Protein Trace H (Negative) Urine Glucose (UA) Negative (Negative) Urine Ketones 2+ H (Negative) Urine Blood 3+ H (Negative) Urine Nitrite Negative (Negative) Urine Bilirubin Negative (Negative) Urine Urobilinogen Negative (Negative) Ur Leukocyte Esterase Negative (Negative) Urine WBC (Auto) 1-5 (0-5) /hpf Urine RBC (Auto) >30 H (0-4) /hpf U Hyaline Cast (Auto) 1-5 (0-5) /lpf U Epithel Cells (Auto) 5-10 H (0-5) /lpf Urine Bacteria (Auto) Negative (Negative) 03/26/20 Range/Units 03:45 WBC 16.66 H (4.8-10.8) K/uL RBC 4.71 (4.7-6.1) M/uL Hgb 14.7 (14.0-18.0) g/dL Hct 42.8 (42-52) % MCV 90.9 (80-100) fL MCH 31.2 (25-34) pg MCHC 34.3 (32-36) g/dL RDW Std Deviation 43.8 (36.4-46.3) fL RDW Coeff of Hazel 13.2 (11.5-14.5) % Plt Count 407 H (130-400) K/uL MPV 9.5 (7.4-10.4) fL Immature Gran % (Auto) 0.3 % Neut % (Auto) 82.3 % Lymph % (Auto) 9.8 % Maverick % (Auto) 7.4 % Eos % (Auto) 0.2 % Baso % (Auto) 0.0 % Immature Gran # (Auto) 0.06 H (0.00-0.02) K/uL Neut # (Auto) 14.32 H (1.4-6.5) K/uL Lymph # (Auto) 1.71 (1.2-3.4) K/uL [place] # (Auto) 1.29 H (0.11-0.59) K/uL Eos # (Auto) 0.04 (0-0.5) K/uL Baso # (Auto) 0.00 (0-0.2) K/uL Absolute Nucleated RBC 0.00 (0-0) K/uL Nucleated RBC % (auto) 0.0 % Sodium (136-145) mmol/L Potassium (3.5-5.1) mmol/L Chloride (98-107) mmol/L Carbon Dioxide (21-32) mmol/L Anion Gap (3-11) BUN (7-18) mg/dl Creatinine (0.6-1.4) mg/dl Est Cr Clr Drug Dosing ml/min Est GFR ( Amer) Est GFR (Non-Af Amer) BUN/Creatinine Ratio (10-20) Glucose (70-99) mg/dl POC Glucose (70-99) mg/dl Calcium (8.5-10.1) mg/dl Urine Color Urine Appearance (Clear) Urine pH (4.5-7.5) Ur Specific [place] (1.000-1.030) Urine Protein (Negative) Urine Glucose (UA) (Negative) Urine Ketones (Negative) Urine Blood (Negative) Urine Nitrite (Negative) Urine Bilirubin (Negative) Urine Urobilinogen (Negative) Ur Leukocyte Esterase (Negative) Urine WBC (Auto) (0-5) /hpf Urine RBC (Auto) (0-4) /hpf U Hyaline Cast (Auto) (0-5) /lpf U Epithel Cells (Auto) (0-5) /lpf Urine Bacteria (Auto) (Negative) PG Care Time/CCT Total # of Minutes Spent Total Time Spent with Patient: Total time spent is greater than 50% in coordination of care (as documented) at patient's floor/unit and/or counseling patient: Coding Level of Care Code None Diagnoses Left ureteral calculus N20.1 ALBER (acute kidney injury) N17.9 Hydronephrosis due to obstruction of ureter N13.2 Hyperlipidemia E78.5 Diabetes type 2 with atherosclerosis of arteries of extremities E11.51; I70.209 CAD (coronary artery disease) I25.10 Hypertension I10 DVT prophylaxis Z29.9
[2020-02-11] MEDS ORDERED: IOTHALAMATE MEGLUMINE II 17.2% 250 ML VIAL INSTIL ONE (12:30)
--- NOTE | 2020-02-11 12:44 | Operative Report ---
PG Post Operative Report Pre & Post Diagnosis Operation Date: 02/11/20 12:20 Pre-Op Diagnosis: Left distal ureteral stone with intractable colic Post-Op Diagnosis: left distal ureteral stone with intractable colic Surgeon: Dr. Gregory Lind. Follow Up Clerk: None. Anesthesia: General anesthesia with laryngeal mask. Specimen sent to pathology: Left distal ureteral stone for chemical analysis. Drains left in place: 6 Citizen [place] 26 cm loop stent with string on the left-hand side. Complications: None. Findings: Left impacted distal ureteral stone able to be removed intact after basketing, ureteral inflammation without evidence of injury. I identified the patient and participated in the time-out.: Yes Procedure Operation Date: 02/11/20 12:20 Actual Procedures p Cystoscopy, Left Retrograde Pyelogram, Left Stent Placement, Left Semi rigid Ureteroscopy, Basket Stone Extraction;(Left) - Gregory Lind MD Brief history: Patient is a 54-year-old male admitted after his second ER visit for intractable pain, nausea and emesis associated with a left distal ureteral stone. Imaging is reviewed demonstrating mild to moderate hydronephrosis. Patient is passed a number of stones previously but continues to have difficulties and pain with this episode. After discussion of risks and benefits of various forms of management he has decided upon acute endoscopic management to manage his disease. Please see urology notes for further details. Case is being performed in the midst of the coronavirus pandemic seen his recurrent visits to the emergency room and need for hospitalization to expedite his ability to isolate. Intravenous Rocephin is been provided by the primary service for antibiotic coverage. SCDs used for DVT prophylaxis. Risk associated with hospitalization and intervention in the midst of the viral pandemic is also reviewed. Procedure: Patient was properly identified and brought into the operative suite after identification of appropriate consent in the chart. General anesthesia with laryngeal mask was initiated and patient was prepped and draped in the standard fashion for this procedure. Full timeout procedure was followed. 22 [place] rigid cystoscope was passed into the bladder under direct visualization bladder was surveyed in its entirety demonstrating no intravesical lesions, papillary masses or calculi. Minimally obstructive prostate gland was appreciated with mild bladder neck elevation. Ureteral orifices were noted to be relatively close to the bladder neck but accessible. Retrograde pyelography was performed on the left-hand side demonstrating ureteral fullness down to the level of the distal ureter. Sensor tip wire was advanced up to the level of the left kidney was kept until the end of the case as a safety wire. Bladder was drained the cystoscope was removed. Semirigid ureteroscope, long, was advanced over a working wire into the left distal ureter. Patient stone was rapidly encountered surrounded by significant ureteral inflammation and edema. This was able to be grasped using a 0 tip basket and removed without excess resistance or difficulties. This was sent for chemical analysis. Semirigid ureteroscope was returned to the ureter up to the level of the vessels with no additional stones or abnormalities being appreciated save for proximal fullness consistent with the patient's obstruction. Mild irritation at the level of stone impaction was noted without clear ureteral tears or residual calculi. No tumors or strictures were noted. Cystoscope was backloaded over the safety wire and a 6 [place] 26 centimeters loop stent was advanced with a partial coil being present at the level of the left renal pelvis and a small amount of the loops present within the bladder. String was left intact and was looped and taped to the left side of the phallus. Bladder was drained prior to removal of cystoscope. Anesthesia was reversed and patient was transferred to the recovery room in stable condition. Follow-up CARE: Patient should be stable for discharge home later today with a prescription for Percocet, Pyridium and a short course of antibiotics for example ciprofloxacin. Will arrange for outpatient stent removal either in the office or by telephone using the string depending on the level of quarantine present in 1 to 2 weeks. Surgeon Gregory Lind MD Follow Up Clerk None Estimated Blood Loss 0 Findings Consistent with Post-Op Diagnosis Specimens See above Description of Procedure See above I attest to the content of the Intraoperative Record and any orders documented therein. Any exceptions are noted below.
--- NOTE | 2020-02-11 12:48 | Fluoroscopy Report ---
FL retrograde includes kub CLINICAL HISTORY: 54 years-old Male presenting with LEFT CYSTO LASER STENT. TECHNIQUE: 3 fluoroscopic image(s) recorded as part of an intraoperative procedure. COMPARISON: CT from 02/09/2020. FINDINGS/IMPRESSION: The left urinary collecting system was opacified with contrast. Subsequently, a left ureteral stent w as placed. Please see surgical report for further details. Fluoroscopy dosage (mGy): 5.85. Fluoroscopy time: 33.3 seconds. Number or time of high level fluoroscopy (HLF), digital spot, or digital subtraction images: 0. ACT 112: Negative or not required by law. Electronically signed by: Jay Pacheco M.D. 02/11/2020 12:47 PM
--- NOTE | 2020-02-11 13:18 | Anesthesiology Progress Note ---
Date of Service February 11, 2020 Anesthesia Post Procedure Vital Signs Vital Signs: Temp Pulse Pulse Pulse Resp BP BP 02/11/20 13:00 75 14 108/77 02/11/20 12:51 36.7 C 80 12 121/73 02/11/20 11:03 37.1 C 87 18 133/78 02/11/20 08:57 37 C 74 18 145/86 H 02/11/20 06:45 37.0 C 75 16 145/86 H 02/11/20 05:45 67 18 02/11/20 04:47 73 18 02/11/20 03:57 69 18 02/11/20 03:33 36.7 C 79 18 124/83 BP Pulse Ox 02/11/20 13:00 99 02/11/20 12:51 99 02/11/20 11:03 91 02/11/20 08:57 98 02/11/20 06:45 98 02/11/20 05:45 133/89 97 02/11/20 04:47 154/96 H 97 02/11/20 03:57 141/87 H 97 02/11/20 03:33 97 Pain Intensity Left Flank: Pain Intensity: 1 Transfer of Care Handoff Completed per policy Notes Mental Status: alert / awake / arousable Patient Amnestic to Procedure: Yes Nausea / Vomiting: adequately controlled Pain: adequately controlled Airway Patency, RR, SpO2: stable & adequate BP & HR: stable & adequate Hydration State: stable & adequate Anesthetic Complications: no major complications apparent and Pt Satisfied with anesthetic care Notes: The patient is awake and his vitals are stable in PACU.
[2020-02-11] MEDS ORDERED: PHENAZOPYRIDINE HCL 200 MG TAB PO PRN (13:55)
--- NOTE | 2020-02-11 15:46 | Electrocardiogram Report ---
Test Reason : Blood Pressure : / mmHG Vent. Rate : 077 BPM Atrial Rate : 077 BPM P-R Int : 146 ms QRS Dur : 080 ms QT Int : 410 ms P-R-T Axes : 045 -06 029 degrees QTc Int : 463 ms Normal sinus rhythm Normal ECG When compared with ECG of 06-APR-2019 02:15, No significant change was found Confirmed by Dami Lee ([id number]) on 02/11/2020 3:46:31 PM Referred By: REFERRED SELF Confirmed By:Tyrone Lee
[2020-02-11] MEDS ORDERED: OXYCODONE HCL IR 5 MG TAB (IMMEDIATE RELEASE) PO PRN (16:03)
[2020-02-11] MEDS ORDERED: METOPROLOL SUCC 50MG EXT REL TAB PO SCH (21:00)
[2020-02-11] MEDS ORDERED: TAMSULOSIN HCL 0.4 MG CAP PO SCH (21:00)
[2020-02-12] MEDS: NSS + 20MEQ KCL 20 MEQ/1,000 ML BAG IV SCH (00:02)
[2020-02-12 05:38] LABS: Hematocrit (blood only) 36.1 % (42-52); Hemoglobin 11.9 g/dL (14.0-18.0); Immature Granulocytes # (auto) 0.03 K/uL (0.00-0.02); Immature Granulocytes % (auto) 0.2 %; Lymphocytes # (auto) 1.25 K/uL (1.2-3.4); Lymphocytes % (auto) 9.1 %; Mean Corpuscular Hemoglobin 30.8 pg (25-34); Mean Corpuscular Volume 93.5 fL (80-100); Mean Platelet Volume 9.8 fL (7.4-10.4); Monocytes # (auto) 1.14 K/uL (0.11-0.59); Monocytes % (auto) 8.3 %; Neutrophils % (auto) 82.4 %; Platelet Count 341 K/uL (130-400); RDW Coefficient of Variation 13.5 % (11.5-14.5); RDW Standard Deviation 46.2 fL (36.4-46.3); Red Blood Count 3.86 M/uL (4.7-6.1); White Blood Count 13.72 K/uL (4.8-10.8)
[2020-02-12 06:21] LABS: Albumin Globulin Ratio 0.7 (0.9-2); Albumin Level 2.7 gm/dl (3.4-5.0); BUN Creatinine Ratio 15.4 (10-20); Bilirubin,Total 0.6 mg/dl (0.2-1); Calcium 8.4 mg/dl (8.5-10.1); Creatinine Clr Calc Pharmacy 77.5 ml/min; Est GFR (African American) 95.7; Est GFR (Non-African American) 82.5; Globulin 3.7 gm/dl (2.5-4.0); Magnesium 2.1 mg/dl (1.8-2.4); Potassium 4.4 mmol/L (3.5-5.1); Total Protein 6.4 gm/dl (6.4-8.2)
--- NOTE | 2020-02-12 08:03 | Urology Progress Note ---
Date of Service February 12, 2020 Assessment & Plan (1) Left ureteral calculus: (2) Intractable pain: (3) Hydronephrosis due to obstruction of ureter: 54 year-old admitted with intractable left flank pain with associated nausea and vomiting in the context of a 4mm obstructing left distal ureteral stone with mild left hydronephrosis. -POD #1 cystoscopy, left retrograde pyelogram, left stent placement, left semi rigid ureteroscopy, and basket stone extraction. -Patient clinically progressing, pain has resolved. -Remains afebrile. -Renal function stable. -Urine culture from 02/06 no growth. -Okay to discharge from perspective. -Recommend discharge home with pain control, Pyridium, and three day course of Ciprofloxacin. -Discussed with patient a phone call for stent removal instructions versus office visit, he prefers office visit. -Will arrange follow-up appointment with urology service for stent removal with KUB prior to appointment. -Expected clinical course discussed, all questions answered. Patient in agreement with plan. Thank you for allowing us to participate in the acute care of Mr. Macdonald. Please reconsult us with additional questions, concerns or changes in patient status. Subjective POD#1 cystoscopy, left retrograde pyelogram, left stent placement, left semi rigid ureteroscopy, and basket stone extraction. Patient alert, awake, comfortable. Feeling better overall. States he slept well overnight. Tolerating stent, has not required pain medication. Denies fevers or chills. Does report mild dysuria. Denies frequency or hesitancy. Feels he is emptying his bladder without difficulty. Reports hematuria as expected. Tolerating diet without nausea or vomiting. Has been out of bed ambulating without dizziness or lightheadedness. Requesting to be discharged today. Chart review: Afebrile. Wbc 13.72 (previously 16.66) Hgb 11.9 Creatine 1.03 (previously 1.24) Urine culture from 02/06 no growth. Review of Systems Constitutional: no fever and no chills Gastrointestinal: no nausea and no vomiting Genitourinary: + as per Subjective / HPI Neurologic: no dizziness and no syncope Physical Exam Constitutional: well developed and well nourished; no acute distress and not ill appearing Respiratory: normal respiratory effort and able to speak in complete sentences; no respiratory distress and no audible wheezes Cardiovascular: Extremities: no calf tenderness and no edema Gastrointestinal (Abdomen): Inspection/Auscultation: abdomen normal to inspection; abdomen not distended Percussion/Palpation: abdomen soft; abdomen nontender and no guarding Psychiatric: Orientation: alert, oriented x 3 and cooperative Affect: euthymic affect Genitourinary: no CVA tenderness Results & Data Vital Signs (Past 12 Hours) Vital Signs Temp Pulse Resp BP BP Pulse Ox 02/12/20 07:30 36.8 C 51 L 16 108/61 94 02/12/20 03:21 36.9 C 56 L 18 112/70 95 02/11/20 23:05 36.8 C 61 16 99/63 L 95 02/11/20 20:45 71 113/71 PG Care Time/CCT Total # of Minutes Spent Total Time Spent with Patient: Total time spent is greater than 50% in coordination of care (as documented) at patient's floor/unit and/or counseling patient: Coding Level of Care Code 43382 Subseq Hosp Care Lvl 2 Diagnoses Left ureteral calculus N20.1 Intractable pain R52 Hydronephrosis due to obstruction of ureter N13.2
[2020-02-12] MEDS: cefTRIAXone SODIUM 1,000 MG in DEXTROSE 5% 50 ML IV SCH (08:41)
--- NOTE | 2020-02-12 08:46 | Discharge Summary ---
Date of Service February 12, 2020 Admission HPI Per Admitting Provider The patient is a 54-year-old male with a past medical history including hyperlipidemia, STEMI, diabetes mellitus type 2, peripheral arterial disease, and Chlamydia, who presented to the emergency department 2 evenings ago with left flank pain was diagnosed with a left 4 mm ureteral calculus with mild hydronephrosis. He was discharged to home, reports that his pain has worsened since that time, presented back to the ED for reassessment tonight, and was referred for evaluation for admission. He reports having had one kidney stone in the past, that was able to be passed on its own without intervention. Admission Exam Per Admitting Provider The patient is awake, alert and oriented 3, well developed and well nourished, normocephalic and atraumatic, lying in bed and in no acute distress. HEENT--PERRL, EOMI, mucous membranes and oropharynx normal. Neck--supple. No JVD. No bruits. Thyroid normal, trachea midline, no adenopathy. Heart--normal S1 and S2. No murmurs, rubs or gallops. Lungs--clear bilaterally, no respiratory distress, no accessory muscle use. Abdomen--normal bowel sounds and soft. Nontender. Nondistended. Extremities--no cyanosis or clubbing. No edema. There are good distal pulses b/l. Dermatologic--normal skin turgor, normal color, no abnormal lymph nodes, no rash. Neurologic--cranial nerves II through XII grossly intact. Rheumatologic--normal range of motion. Psychiatric--normal affect. Principal Diagnosis Left Ureteral Calculus with Obstruction and Hydronephrosis Discharge Exam Constitutional well developed and well nourished; no acute distress Eyes + anicteric sclerae and PERRL ENMT external ear and nose normal, oropharynx normal Neck trachea midline, no thyromegaly Respiratory normal respiratory effort, lungs clear to auscultation Cardiovascular RRR, no murmur, no edema Gastrointestinal (Abdomen) normal bowel sounds, soft, nontender, no hepatosplenomegaly Musculoskeletal no cyanosis or clubbing, extremities motor strength 5/5 Skin no rashes, warm and dry Neurologic patellar DTR's 2+ bilat, sensation intact Psychiatric A+Ox3, euthymic affect Genitourinary string securely in place Lymphatic no cervical or axillary lymphadenopathy Discharge Data Allergies Allergy/AdvReac Type Severity Reaction Status Date / Time No Known Drug Allergies Allergy Verified 02/09/20 10:07 Consultations 02/11/20 04:43 ED Decision to Admit Stat 02/11/20 07:15 Consult Case Management - Discharge Planning Routine Consult Urology Routine Procedures Performed Operation Date: 02/11/20 12:20 Actual Procedures p Cystoscopy, Left Retrograde Pyelogram, Left Semi rigid Ureteroscopy, Basket Stone Extraction;(Left) - Gregory Lind MD s Left Stent Placement,(Left) - Gregory Lind MD Ordered Studies 02/11/20 FL retrograde includes kub Routine 02/11/20 03:37 US renal/blad retro comp Urgent Hospital Course (1) Left ureteral calculus: * 4 mm distal left ureteral calculus with mild left hydronephrosis. Cr bumped to 1.24 from 0.84 on 02/08. WBC 16.6k on admission * UA with 2+ ketones, 3+ blood, >30RBC * Rocephin IV for empiric coverage. Cultures without growth. * IVF given with resolution of Cr to 1.03 * Urology consulted -- s/p Cystoscopy, Left Retrograde Pyelogram, Left Stent Placement, Left Semi rigid Ureteroscopy, Basket Stone Extraction;(Left) with Dr. Lind on 02/10 * Per Urology, discharged with short course pain medication, pyridium prn and cipro x 3 days * Follow up with Urology as scheduled for stent removal. KUB ordered prior to appointment (2) ALBER (acute kidney injury): * See above. Secondary to obstructing stone (3) Hydronephrosis due to obstruction of ureter: * See above (4) Hyperlipidemia: * Chronic. Stable. * Resumed atorvastatin at discharge. Was on hold as patient NPO for procedure. (5) Diabetes type 2 with atherosclerosis of arteries of extremities: * Placed on Accu-Cheks before meals and at bedtime/every 6 hours with NovoLog coverage per scale * Hold metformin (6) CAD (coronary artery disease): * S/p PCI to LAD January 2019. Had previously been on DAPT for 1 year, completed earlier this month (01/30/20) * ASA 81mg held for procedure, resumed follow * Continued BB once no longer NPO (7) Hypertension: * Chronic. Stable. * Lisinopril 20mg on hold for procedure and ALBER-- resumed following procedure * Continued metoprolol 100mg at bedtime once no longer NPO and BP tolerates (8) DVT prophylaxis: * Encourage ambulation * SCDs while inpatient Total Time Total Time Spent Total Time Spent (In Minutes): 50 Discharge Plan Discharge Items Patient Disposition: Home - Self-Care Reason For Visit: OBSTR URETERAL CALCULUS W/ HYDRO Discharge Diagnosis: Right Sided Kidney Stone with Obstruction Condition on Discharge: Good Goals: You have been hospitalized for an urgent problem which required surgery. During your stay at [facility], we have made an effort to correct the problem that brought you to the hospital while keeping you as comfortable as possible. Surgery and medications were used to bring your condition under control and your discharge instructions will include directions for any medications you should take after leaving the hospital. Please make sure to follow the advice of your surgeon regarding follow up with the surgeon and with your primary care provider. Activity: Resume your previous activity Non-emergency contact: Primary Care Provider and Urologist Call non-emergency contact if: you have any medication questions, your symptoms worsen and your pain is concerning for you Follow-up/Referrals: Gregory Lind MD [Physician] - 02/19/20 9:40 am Anthony Chapman III, MD [Primary Care Provider] - Diet: Carb Consistent or DM2 and Heart Healthy Ambulatory Orders: XR KUB/Abdomen 1 view (Routine) Timeframe: 20200218 Location: Determined by Patient Ordered By: Marilyn Mccabe Attending Provider Instructions: You have been hospitalized for a right sided kidney stone and were taking to the operating room for removal and stent placement. You were treated with antibiotics and it is determined that you will continue a course of ciprofloxacin for the next 3 days. You are also being sent a prescription for pyridium which can help with irritation/burning following stent placement. You have also been sent a short course of pain medications to utilize for any breakthrough pain. For non extremes in pain, please utilize tylenol but make sure not to exceed a total of 3,000mg in a 24 hour period of time. Please follow up with Urology in the next week for stent removal. You appointment is February 18. You should have a KUB (x-ray) done prior to this appointment. An order is already in the system. Please follow up with your primary care provider as scheduled. Please return to the emergency room if you have any worsening pain, fever, or for any symptoms that are concerning for you. It has been a pleasure being a a part of the medical team providing for you while you have been in the hospital. Take care! Pending Studies at Discharge: Yes Studies:: Stone Analysis Stand-Alone Forms: [facility], Opioid Pain Management, Smoking Cessation Medications and DC Order Prescriptions: New phenazopyridine [Pyridium] 200 mg Tablet 200 mg PO TID PRN (Reason: pain) Qty: 10 RF: 0 oxycodone 5 mg Tablet 5 mg PO Q4H PRN (Reason: pain) Qty: 6 RF: 0 Continued atorvastatin 80 mg tablet 80 mg PO HS Qty: 90 RF: 3 lisinopril 20 mg tablet 20 mg PO QAM Qty: 90 RF: 3 metformin 500 mg tablet extended release 24 hr 500 mg PO BID Qty: 60 RF: 5 aspirin [Ecotrin Low Strength] 81 mg Tablet,Delayed Release (Dr/Ec) 81 mg PO QAM Qty: 30 RF: 0 metoprolol succinate 100 mg tablet extended release 24 hr 100 mg PO HS Qty: 30 RF: 0 ondansetron 4 mg tablet,disintegrating 4 mg PO Q8H PRN (Reason: nausea and vomiting) Qty: 14 RF: 0 Discontinued tamsulosin [Flomax] 0.4 mg capsule 0.4 mg PO HS Qty: 7 RF: 0 oxycodone 5 mg tablet 5 mg PO Q6H PRN (Reason: pain) Qty: 12 RF: 0 Discharge Orders: Discharge Order (Routine); Ordered 02/12/20 Ordered By: Marilyn Marroquin Admission Data Admit Date/Time: 02/11/20 06:01 Attending Provider: Pj Hernadez Admit Provider: Camden Carrion Primary Care Provider: Anthony Chapman III Other Providers: Camden Carrion ; Patrice Chamberlain Other Interventions: Discharge Summary Assessment (RN) Last Done: 02/12/20 09:22 DC Date/Time DO NOT enter until pt leaves facility: 02/12/20 09:53 Supervising Physician Co-Signing Physician Notes During my face to face encounter, I performed a physical examination and obtained a clinical history of hospital stay. D/W APC Marilyn Marroquin Agree with above history and physical examination. I agree with above plan. In addition to the above plan, will add the following: Left ureteral calculus: Patient will be discharged and will f.u with Urology for stent removal. Coding Level of Care Code D/C Day Management >30 mins Diagnoses Left ureteral calculus N20.1 ALBER (acute kidney injury) N17.9 Hydronephrosis due to obstruction of ureter N13.2 Hyperlipidemia E78.5 Diabetes type 2 with atherosclerosis of arteries of extremities E11.51; I70.209 CAD (coronary artery disease) I25.10 Hypertension I10 DVT prophylaxis Z29.9
--- NOTE | 2020-02-12 13:18 | Anesthesiology Progress Note ---
Date of Service February 12, 2020 Anesthesia Post Procedure Vital Signs Vital Signs: Temp Pulse Pulse Resp BP BP Pulse Ox 02/12/20 07:30 36.8 C 51 L 16 108/61 94 02/12/20 03:21 36.9 C 56 L 18 112/70 95 02/11/20 23:05 36.8 C 61 16 99/63 L 95 02/11/20 20:45 71 113/71 02/11/20 19:23 37.1 C 65 18 109/70 94 02/11/20 15:50 37.0 C 59 L 16 112/73 95 02/11/20 15:17 37.1 C 66 16 122/77 94 02/11/20 14:17 73 18 117/76 92 02/11/20 13:50 37.4 C 66 16 108/63 98 02/11/20 13:40 77 15 101/69 93 02/11/20 13:30 36.8 C 83 17 109/72 95 02/11/20 13:20 74 14 112/71 98 Pain Intensity Left Flank: Pain Intensity: 1 Penis: Pain Intensity: 3 Notes Mental Status: alert / awake / arousable and participated in evaluation Patient Amnestic to Procedure: Yes Nausea / Vomiting: see Notes below Pain: adequately controlled Airway Patency, RR, SpO2: stable & adequate BP & HR: stable & adequate Hydration State: stable & adequate Anesthetic Complications: no major complications apparent and Pt Satisfied with anesthetic care
[2020-02-15 17:45] LABS: Calculus Nidus Not Observed; Component 2 DNR; Source LEFT URETERAL STONE
== END 2020-02-12 09:53 | disposition home or self-care (01) | DRG 661 ==
LOC: ED 03:28 → SUATTDRO 06:01 → 3N 06:01 → 3E 13:54